=== PATIENT | male | born 1955 | race Caucasian/White ===

== ENCOUNTER 2021-10-07 20:44 | Inpatient (IN) | payer OTHER, MEDICAID ==
[~2021-10-07] VITALS: Ht 188 cm; Wt 149.4 kg
[~2021-10-07 20:44] MED LIST: ETOMIDATE 20 MG/ 10 ML VIAL (AMIDATE) ONE
--- NOTE | 2021-10-07 20:46 | NUR ---
66 YR OLD MALE FOUND DOWN IN HIS HOUSE FOR MORE THAN 2 WEEKS COVERED IN FECES WITH DIFFICULTY BREATHING. PER PARAMEDICS PT STATES HE HAS NOT BEEN TO A DOCTOR IN MORE THAN 30 YEARS. PER PARAMEDICS PT RECIEVED 2 ROUNDS OF ADENOSINE 12 MG IN ROUTE TO ED WITH NO CHANGE IN HEART RATE. PT HEART RATE UPON ARRIVAL WAS MORE THAN 200, WITH ELEVATED BLOOD PRESSURE. PT ARRIVED ON 4 LITER NASAL NANNULA WITH O2 SAT AT 84 %. PT DENIES BEING COVID VACCINATED OR HAVING KNOWN DRUG ALLERGIES. PT EKG COMPLETED AT THE BEDSIDE, AND MD IS AT THE BEDSIDE FOR EVALUATION. PT ARRIVED WITH 18 G IV IN HIS LEFT AC. AN ADDITIONAL 18 G IV WAS PLACED I THE RIGHT AC.
--- NOTE | 2021-10-07 20:47 | NUR ---
AT THE BEDSIDE, ORDER FOR 10MG OF ETOMIDATE ADMINISTERED TO PT.
--- NOTE | 2021-10-07 20:48 | NUR ---
PT PLACED ON CARDIAC PADS AND CARDIOVERTED. MD REMAINS AT THE BEDSIDE
--- NOTE | 2021-10-07 20:50 | NUR ---
MD PLACED NPA ON THE RIGHT NARE OF PT, PT TOLERATED WELL.
--- NOTE | 2021-10-07 20:57 | NUR ---
NITROGLYCERIN DRIP INITIATED AT 50 MCG/MIN ADMINISTERED IV. PT REMAINS ON BI PAP. PT WILL BE MONITERED CLOSELY
[2021-10-07 20:58] VITALS: BP_SYST 165
[2021-10-07] MEDS ORDERED: FUROSEMIDE 40 MG/4 ML VIAL IVP ONE (21:15)
[2021-10-07] MEDS ORDERED: ASPIRIN 325 MG TABLET PO ONE (21:15)
[2021-10-07] MEDS ORDERED: NITROGLYCERIN 250 ML IV ONE (21:15)
[2021-10-07 21:19] LABS: ANION GAP 14 (5-15); CHLORIDE 95 mmol/L (98-107); CREATININE 1.98 mg/dL (0.55-1.30); GLUCOSE 115 mg/dL (70-99); POTASSIUM 5.2 mmol/L (3.5-5.1); SODIUM SERUM 127 mmol/L (136-145); UREA NITROGEN, BLOOD 65 mg/dL (8-21)
[2021-10-07 21:23] LABS: MEAN CORPUSCULAR HGB CONC 33 % (32-36)
[2021-10-07 21:30] LABS: GFR AFRICAN AMERICAN 44 mL/min (>90)
[2021-10-07 21:34] LABS: ALANINE AMINOTRANSFERASE 2009 U/L (12-78); ALBUMIN 2.7 g/dL (3.4-4.8); ASPARTATE AMINOTRANSFERASE 1580 U/L (10-37); THYROID STIMULATING HORMONE 2.79 uIu/mL (0.36-3.74); TOTAL BILIRUBIN 3.4 mg/dL (0.0-1.0)
[2021-10-07 21:36] LABS: HEMATOCRIT 49.2 % (36-54); HEMOGLOBIN 16.3 g/dL (14.0-18.0); MEAN CORPUSCULAR HEMOGLOBIN 31 pg (27-31); MEAN CORPUSCULAR VOLUME 94 fL (79.0-98.0); PLATELET COUNT (AUTO) 180 K/uL (130-430); RED BLOOD CELL COUNT(AUTO) 5.22 MIL/uL (4.2-6.2); RED CELL DISTRIBUTION WIDTH 15.1 % (9.0-15.0); WHITE BLOOD COUNT (AUTO) 17.6 K/uL (4.8-10.8)
[2021-10-07] MEDS ORDERED: PIPERACILLIN/TAZO 3.375 GM in NS 50 ML IV ONE (22:00)
[2021-10-07] MEDS ORDERED: VANCOMYCIN HCL 1,000 MG in NS 250 ML IV ONE (22:00)
[2021-10-07] MEDS ORDERED: SODIUM ZIRCONIUM CYCLOSILICATE 10 GM POWD.PACK PO ONE (22:15)
--- NOTE | 2021-10-07 22:31 | NUR ---
Admit bed requested Patient will be admitted to care of . Admitted to unit. Diagnosis Inpatient (Yes or No) Observation (Yes or No) Orientation concerns or request close to nursing station (Yes or No) Covid Status On vent or bipap Isolation requirements Needs a sitter From Home (Yes or if No enter name of facility) Requires Dialysis (Yes or No) Med Rec Completed (Yes of No)
[2021-10-07 22:33] LABS: BILIRUBIN,URINE NEGATIVE (NEGATIVE); COLOR,URINE YELLOW (YELLOW); GLUCOSE,URINE NEGATIVE (NEGATIVE); KETONES,URINE NEGATIVE (NEGATIVE); LEUKOCYTE ESTERASE ,URINE NEGATIVE (NEGATIVE); NITRITE, URINE NEGATIVE (NEGATIVE); PROTEIN URINE TRACE (NEGATIVE)
[2021-10-07 22:46] LABS: BLOOD, URINE TRACE (NEGATIVE); CLARITY/URINE HAZY (CLEAR)
[2021-10-07] MEDS ORDERED: VANCOMYCIN HCL 1000 MG/VIAL IV ONE (23:26)
[2021-10-07] MEDS ORDERED: PIPERACILLIN/TAZOBACTAM 3.375 GM/VIAL (ZOSYN) IV ONE (23:27)
[2021-10-07 23:48] LABS: BAND % (MANUAL) 9 % (0-6); BASOPHILS % (MANUAL) 0 % (0-2); EOSINOPHILS % (MANUAL) 0 % (0-7); LYMPHOCYTES % (MANUAL) 2 % (20-46); MONOCYTES % (MANUAL) 2 % (0-11)
[2021-10-07 23:55] LABS: BACTERIA,URINE FEW /HPF (None Seen)
[2021-10-08] VITALS (25 sets, daily range): BP systolic 104–169
--- NOTE | 2021-10-08 00:34 | NUR ---
REPORT PROVIDED TO ED ÁLVAREZ FOR CONTINUATION OF CARE VIA PHONE
--- NOTE | 2021-10-08 00:35 | NUR ---
RECEIVED REPORT FROM ER OVER THE PHONE. PATIENT IS ON HIS WAY TO ICU.
--- NOTE | 2021-10-08 01:00 | NUR ---
PATIENT RECEIVED IN ICU BY NURSE NELIDA. PHOTOS OF PATIENTS WOUNDS WERE TAKEN IN ER AND BROUGHT TO ICU. PATIENT IS AWAKE WITH MILD CONFUSION AND GARBLED SPEECH. ASKED PATIENT SEVERAL QUESTION TO WHICH HE STATED HE WAS TIRED AND DID NOT WANT TO ANSWER ANY MORE QUESTIONS. PATIENT HAS A RIGHT AC 18G WITH NITROGLYCERIN RUNNING. PATIENT HAS WOUNDS ON LEFT AND RIGHT BUTTOCKS, BEHIND LEFT AND RIGHT UPPER CALF, ON LEFT HIP THAT HAS TUNNELING, ABDOMEN HAS A WOUND WITH PURULENT DRAINAGE AND SEVERAL SMALL WOUNDS, AND BOTH FEET HAVE DEEP CRACKS WITH PURULENT DRAINAGE. WOUNDS HAVE ZINC AND DRESSING APPLIED.
--- NOTE | 2021-10-08 03:40 | NUR ---
PATIENT SISTER VANDANA CALLED FOR AN UPDATE. VANDANA INFORMED ME THE PATIENT HAD STOPPED EATING ABOUT 4 DAYS AGO AND HAS SCHIZOPHRENIA AND IS UNSURE OF HIS MEDS. PATIENT HAS NOT GONE TO A DOCTOR IN A LONG TIME. VANDANA ASKED ABOUT THE VISITORS REQUIREMENTS WITH NAT AND I INFORMED SHE NEED A NEGATIVE PCR TEST WITHIN THE PAST 48 HOURS OR PROOF OF FULL VACCINATION STATUS. PATIENT STATED SHE WILL CALL AGAIN TOMORROW FOR AN UPDATE.
[2021-10-08 05:59] LABS: BASOPHILS # (AUTO) 0.1 K/uL (0.0-0.2); BASOPHILS % (AUTO) 0.5 % (0.0-2.0); EOSINOPHILS % (AUTO) 0.1 % (0.0-4.0); HEMATOCRIT 44.2 % (36-54); LYMPHOCYTES # (AUTO) 1.1 K/uL (1.0-5.5); LYMPHOCYTES % (AUTO) 6.6 % (20.5-51.5); MEAN CORPUSCULAR HEMOGLOBIN 32 pg (27-31); MEAN CORPUSCULAR HGB CONC 34 % (32-36); MEAN CORPUSCULAR VOLUME 93 fL (79.0-98.0); MONOCYTES # (AUTO) 1.1 K/uL (0.0-1.0); MONOCYTES % (AUTO) 6.4 % (1.7-9.3); NEUTROPHILS # (AUTO) 14.1 K/uL (1.8-7.7); NEUTROPHILS % (AUTO) 86.4 % (40.0-70.0); PLATELET COUNT (AUTO) 129 K/uL (130-430); RED BLOOD CELL COUNT(AUTO) 4.74 MIL/uL (4.2-6.2); RED CELL DISTRIBUTION WIDTH 14.8 % (9.0-15.0); WHITE BLOOD COUNT (AUTO) 16.4 K/uL (4.8-10.8)
[2021-10-08 06:42] LABS: ALBUMIN 2.6 g/dL (3.4-4.8); CALCIUM 7.8 mg/dL (8.4-11.0); CREATININE 1.89 mg/dL (0.55-1.30); PHOSPHORUS 4.9 mg/dL (2.7-4.5); POTASSIUM 4.7 mmol/L (3.5-5.1)
--- NOTE | 2021-10-08 07:40 | NUR ---
AM ASSESSMENT PT ALERT, ON O2 VIA FACIAL BIPAP, DR ARNOLD CAME IN AND EVALUATED PT. MD ORDERED TO DISCONTINUE HIS BIPAP AND CONNECT PT TO A NASAL CANNULA. ORDERS CARRIED OUT.
--- NOTE | 2021-10-08 07:45 | NUR ---
O2. PT'S SATURATION 88% ON NASAL CANNULA, INFORMED R.T. ON DUTY. O2 SWITCHED TO A MASK. SATURATION READING 94%.
--- NOTE | 2021-10-08 07:45 | NUR ---
RT NOTES 0708 Found pt on BIPAP. re-adjusted mask. 0745 Dr. Lorenzo changed pt to 2LNC, pt desaturate. Placed pt on 12L/40% fio2 Venti mask instead pt saturating 92% right now. will continue to monitor pt. RN Deanna rossi.
[2021-10-08] MEDS ORDERED: CALCIUM ACETATE 667 MG CAP PO ONE (08:00)
--- NOTE | 2021-10-08 08:29 | NUR ---
NOTIFIED OF CONSULTS DR.SIDHOM Lees , , ORDERING PHY: DR. EVANS DIALED: [phone], , SPOKE TO: GARCÍA LOVE DARLENE
[2021-10-08] MEDS: METOPROLOL TARTRATE 50 MG TABLET PO SCH ×2 (08:31→20:55)
--- NOTE | 2021-10-08 08:36 | NUR ---
TEST PT HAVING AN ECHOCARDIOGRAM AT THIS HOUR.
--- NOTE | 2021-10-08 08:47 | NUR ---
CONSULTING PHYSICIANS DR BAILON AND DR FRANCO CAME IN TO SEE THE PATIENT. Addendum: 10/08/21 at 1047 by Deanna Small RN DR DAMON CAME IN TO SEE THE PATIENT NOT DR BAILON
[2021-10-08 08:56] LABS: CKMB RELATIVE INDEX 0.6 (0.0-2.9); CREATINE KINASE MB 3.5 ng/mL (0-3.6)
[2021-10-08] MEDS: NACL 0.9% 1,000 ML IV SCH ×3 (09:01→21:56)
--- NOTE | 2021-10-08 09:01 | NUR ---
IV MEDS NITROGLYCERIN DRIP DISCONTINUED ORDERED BY DR ARNOLD.
[2021-10-08 09:14] LABS: TOTAL BILIRUBIN 3.8 mg/dL (0.0-1.0)
--- NOTE | 2021-10-08 10:06 | NUR ---
AUTOMATION CONTROL INTEGRATOR AT BEDSIDE, PROCEDURE EXPLAINED TO THE PATIENT. PT DECLINED. NURSE EXPLAINED THE PURPOSE AND DURATION OF THE TEST HE STATED " I DON'T WANT YOU TO RUIN MY STOMACH", PT SHAKING HIS HEAD FOR NO.
--- NOTE | 2021-10-08 10:13 | NUR ---
NOTIFIED OF CONSULT ORDERING PHY: REASON FOR CONSULT: SEPSIS DIALED: [phone] SPOKE TO: ELKE
[2021-10-08] MEDS: IPRATROPIUM/ALBUTEROL SULFATE 3 ML AMPUL.NEB (DUONEB) INH SCH ×4 (10:47→22:19)
[2021-10-08] MEDS: PIPERACILLIN/TAZO 3.375/DEX-IS 50 ML IV SCH ×3 (12:26→23:14)
--- NOTE | 2021-10-08 12:49 | NUR ---
TEST PT FOR CT SCAN OF THE ABDOMEN, USE OF ORAL CONTRAST NEEDED, EXPLAINED THE PROCEDURE TO THE PATIENT, PT REFUSED TO WORK WITH STAFF, SHOOK HIS HEAD, HE SAID NO.
[2021-10-08] MEDS ORDERED: AZITHROMYCIN 500 MG in NS 250 ML IV ONE (13:00)
[2021-10-08 13:26] LABS: BARBITURATE, URINE NEGATIVE (NEG <=200); BENZODIAZEPINE, URINE NEGATIVE (NEG <=150); CANNABINOID, URINE NEGATIVE (NEG <=50); COCAINE, URINE NEGATIVE (NEG <=150); METHAMPHETAMINES SCREEN,URINE NEGATIVE (NEG <=500); OPIATE, URINE NEGATIVE (NEG <=100); PHENCYCLIDINE SCREEN,URINE NEGATIVE (NEG <=25); URINE AMPHETAMINE NEGATIVE (NEG <=500); URINE METHADONE NEGATIVE (NEG <=200); URINE OXYCODONE SCREEN NEGATIVE (NEG <=100)
[2021-10-08 13:27] LABS: UR TRICYCLIC ANTIDEPRESSANTS NEGATIVE (NEG <=300); URINE PROPOXYPHENE SCREEN NEGATIVE (NEG <=300)
[2021-10-08] MEDS ORDERED: ONDANSETRON HCL 4 MG/2 ML VIAL IVP ONE (13:45)
--- NOTE | 2021-10-08 13:45 | NUR ---
LeydiICamille PT COMPLAINED "I WANT TO THROW UP", HANDED A BASIN AND TOWEL, PT NAUSEATED, INFORMED DR EVANS, ORDERS RECEIVED. ZOFRAN 4 MG IVP GIVEN.
[2021-10-08 16:47] LABS: INR 1.8 (0.80-1.20); PROTHROMBIN TIME 18.5 SECS (9.5-12.5)
[2021-10-08 17:07] LABS: CKMB RELATIVE INDEX 2.1 (0.0-2.9); CREATINE KINASE MB 11.4 ng/mL (0-3.6)
--- NOTE | 2021-10-08 19:05 | NUR ---
OPENING NOTES: RECEIVED BEDSIDE REPORT FROM JUVENTINO. PATIENT IS AWAKE AND ALERT BUT STILL CONFUSED. PATIENT IS ON BIPAP 15/8, 16, 50%. PATIENT HAS A LEFT HAND 18G WITH HAS NS INFUSING AT 100 ML/HR. PATIENT REFUSED AN ABDOMINAL ULTRASOUND AND A CAT SCAN TODAY. PATIENT IS SINUS TACH AND HAS BEEN ALL DAY. PATIENT DID NOT HAVE A BM, HAS A NY THAT IS PATENT AND DRAINAGE. WOUND CONSULT WAS SUBMITTED BUT NO ONE HAS COME BY TO ASSESS. PATIENT IS ON A CARDIAC DIET BUT ONLY ATE A LITTLE LUNCH AND DINNER WAS HELD DUE TO NURSE OBSERVING STRUGGLE TO BREATH. BED IS AT THE LOWEST LEVEL, CALL LIGHT IS WITHIN REACH, SUCTION WORKING, 3 SIDE RAILS UP, BRAKES ARE LOCKED. EDUCATED PATIENT ABOUT CALLING IF HE NEEDS ANY HELP AND TO NOT GET UP.
--- NOTE | 2021-10-08 19:35 | NUR ---
PATIENT SISTER VANDANA CALLED AND ASKED FOR AN UPDATE. ASKED IF ANY DOCTOR HAD TALKED WITH HER AND ONLY THIS MORNING DID THE DOCTOR. GAVE HER A BRIEF UPDATE AND INQUIRED IF THERE IS ANY PAPERWORK FOR A POWER OF CONTACT CENTER CONSULTANT OR ANY MEDICAL RECORDS ON HIS MENTAL HEALTH CONDITION. SHE SAID HER MOTHER HAS POWER OF CONTACT CENTER CONSULTANT AND WILL BRING ALL THE PAPER WORK TONIGHT.
--- NOTE | 2021-10-08 20:00 | NUR ---
PATIENTS MOTHER GERRY CALLED AND INFORMED ME SHE WAS HIS POWER OF WEBSPHERE PROCESS SERVER DEVELOPER AND THAT SHE WANTED ALL TESTS TO BE DONE. I INFORMED HER WE WOULD NEED THE PAPERWORK AND WILL IMPEDIMENT THEM INTO THE PATIENTS CHART. SHE INFORMED ME SHE WOULD BRING THEM ONCE FOUND.
[2021-10-08] MEDS ORDERED: HEPARIN SODIUM,PORCINE 5,000 UNITS/ML VIAL SUBCUT SCH (21:00)
--- NOTE | 2021-10-08 21:27 | NUR ---
PATIENT SISTER PAULINA CALLED AND INFORMED ME SHE LEFT THE DURABLE POWER OF CHARGING PLUG PLACER AND HIS INSURANCE CARD WITH THE ER RADIO TELEVISION TECHNICAL DIRECTOR. I PICKED UP THE PAPERWORK AND PLACED IN PATIENTS CHART.
[2021-10-08] MEDS ORDERED: VANCOMYCIN HCL 1,500 MG in NS 250 ML IV SCH (22:00)
[2021-10-09] VITALS (27 sets, daily range): BP systolic 40–189
[2021-10-09 00:07] LABS: CKMB RELATIVE INDEX 2.8 (0.0-2.9); CREATINE KINASE MB 9.6 ng/mL (0-3.6)
[2021-10-09] MEDS: IPRATROPIUM/ALBUTEROL SULFATE 3 ML AMPUL.NEB (DUONEB) INH SCH ×5 (03:03→20:35)
[2021-10-09] MEDS: PIPERACILLIN/TAZO 3.375/DEX-IS 50 ML IV SCH ×3 (05:08→18:38)
[2021-10-09 07:35] LABS: BASOPHILS % (AUTO) 0.1 % (0.0-2.0); EOSINOPHILS % (AUTO) 0.2 % (0.0-4.0); MEAN CORPUSCULAR HGB CONC 33 % (32-36)
[2021-10-09 07:41] LABS: INR 1.5 (0.80-1.20); PROTHROMBIN TIME 15.5 SECS (9.5-12.5)
[2021-10-09 07:43] LABS: HEMATOCRIT 45.6 % (36-54); HEMOGLOBIN 14.9 g/dL (14.0-18.0); LYMPHOCYTES # (AUTO) 0.8 K/uL (1.0-5.5); LYMPHOCYTES % (AUTO) 5.1 % (20.5-51.5); MEAN CORPUSCULAR HEMOGLOBIN 32 pg (27-31); MONOCYTES # (AUTO) 1.4 K/uL (0.0-1.0); MONOCYTES % (AUTO) 8.1 % (1.7-9.3); NEUTROPHILS # (AUTO) 14.4 K/uL (1.8-7.7); NEUTROPHILS % (AUTO) 86.5 % (40.0-70.0); PLATELET COUNT (AUTO) 89 K/uL (130-430); RED BLOOD CELL COUNT(AUTO) 4.73 MIL/uL (4.2-6.2); RED CELL DISTRIBUTION WIDTH 15.5 % (9.0-15.0); WHITE BLOOD COUNT (AUTO) 16.7 K/uL (4.8-10.8)
[2021-10-09 07:49] LABS: CALCIUM 7.4 mg/dL (8.4-11.0); CREATININE 1.55 mg/dL (0.55-1.30); POTASSIUM 4.9 mmol/L (3.5-5.1)
[2021-10-09 08:03] LABS: ALBUMIN 2.5 g/dL (3.4-4.8); THYROID STIMULATING HORMONE 1.82 uIu/mL (0.36-3.74)
[2021-10-09 08:15] LABS: MEAN CORPUSCULAR VOLUME 97 fL (79.0-98.0)
--- NOTE | 2021-10-09 08:20 | NUR ---
MD DR EVANS IN THE ROOM, PT ON O2 VIA BIPAP, SHE EXAMINED THE PATIENT. PT'S LOWER EXTREMITIES SWOLLEN, SKIN IS RED AND TEXTURE ROUGH, SKIN FISSURE. SHE ASKED FOR A VASCULAR SURGEON TO SEE THE PATIENT.
[2021-10-09] MEDS: PANTOPRAZOLE SODIUM 40 MG/VIAL (PROTONIX) IVP SCH (09:02)
[2021-10-09] MEDS: METOPROLOL TARTRATE 50 MG TABLET PO SCH (09:04)
--- NOTE | 2021-10-09 09:10 | NUR ---
DIET SERVED PT HIS BREAKFAST, REMOVED PT ON BIPAP, 4 L NASAL CANNULA APPLIED. PT TOLERATED HIS MEAL, HAD A CUP OF DRY CEREAL WITH MILK, AN ORANGE, AND DRANK ORANGE JUICE.
[2021-10-09] MEDS: NACL 0.9% 1,000 ML IV SCH ×2 (09:24→22:05)
--- NOTE | 2021-10-09 09:25 | NUR ---
RT NOTES Per RN pt was placed on 4L NC @0910. Current sat 94%. Will monitor pt.
--- NOTE | 2021-10-09 09:35 | NUR ---
CONSULT CALLED DR WASHBURN, SHIPPING ROOM HELPER PHYSICIAN THIS WEEK END DR Nura PURCELL, PT FOR POSSIBLE WOUND DEBRIDEMENT TO HIS LOWER EXTREMITIES, MD STATED THAT HE WILL SEE THE PATIENT IN THE NEXT FEW DAYS, IT'S NOT EMERGENCY.
--- NOTE | 2021-10-09 10:55 | NUR ---
MD DR FRIED WAS IN THE ROOM, SHE SPOKE TO THE PATIENT AND DISCUSSED PLAN OF CARE. PATIENT DYSPNEIC. PT AGREED ON VENTILATOR. DR WASHBURN CAME IN AFTER A WHILE. HE EXAMINED PT'S SORES TO THE LEGS AND BUTTOCKS.
--- NOTE | 2021-10-09 11:10 | NUR ---
RT NOTES Pt was intubated by dr Lion using the glidescope, with 7.0 ETT secured at 25cm. Bilateral b/s/chest rise noted. Colorimetric changed to yellow & misting was noted on ETT confirming position. Placed pt on vent AC 18 550 +5 100% per Dr's order. Pt. appears to tolerate well. Alarms are set and audible @ nurses's station, vent to red outlet. Dr instructed RT to pull ETT 1cm back, secured at 24cm. Sputum was collected during bronchoscopy which was done after intubation, dr instructed RT to push ETT back to 25cm. No adverse reactions noted. A/w remains secure/patent. Will monitor pt, will draw ABG.
--- NOTE | 2021-10-09 11:20 | NUR ---
FEEDING TUBE INSERTED 16 FR SIZE SALEM SUMP INTO ORAL CAVITY.
[2021-10-09] MEDS ORDERED: NALOXONE HCL 0.4 MG/ML AMP (NARCAN) IVP PRN (11:30)
[2021-10-09] MEDS ORDERED: MORPHINE SULFATE IN 0.9 % NACL 100 ML IV PRN (11:30)
[2021-10-09] MEDS ORDERED: MIDAZOLAM IN NACL,ISO-OSMOT/PF 100 ML IV ONE (11:38)
--- NOTE | 2021-10-09 13:50 | NUR ---
RT NOTES vent settings to AC [address] Kay's order. FIO2 to 0.80 per titration order. Will monitor pt.
--- NOTE | 2021-10-09 14:05 | NUR ---
FAMILY CALL RECEIVED FROM PARESH LLANOS, SHE SAID SHE IS GARCÍA'S OLDER SISTER. SHE LIVES IN THE [facility]. SHE ASKED FOR HER BROTHER'S STATUS. SHE IS AWARE THAT HE HAS SEPSIS, AND PROBLEMS TO HIS WOUNDS. SOME INFORMATION GATHERED FROM HER ON HIS LIVING CONDITION.
--- NOTE | 2021-10-09 15:10 | NUR ---
SOCIAL MEDIA INTERN CALLED AND REPORTED TO DR ARNOLD ON PATIENT'S LOW BLOOD PRESSURE, NOW PT ON VERSED DRIP AND MORPHINE DRIP. PATIENT MECHANICALLY INTUBATED. NEW ORDERS RECEIVED.
[2021-10-09] MEDS ORDERED: COMMUNICATION ORDER XX ONE (15:15)
[2021-10-09] MEDS ORDERED: NS 500 ML IV ONE (15:15)
--- NOTE | 2021-10-09 15:20 | NUR ---
RT NOTES FIO2 TO 0.70 PER TITRATION ORDER. NO ADVERSE REACTIONS NOTED. WILL MONITOR PT. RN MADE AWARE.
--- NOTE | 2021-10-09 15:41 | NUR ---
ISSUING OPERATOR AT BEDSIDE SETTING UP APPARATUS FOR ABDOMINAL ULTRA SOUND.
[2021-10-09] MEDS: ALBUMIN HUMAN 25% 50 ML IV SCH ×2 (15:44→21:15)
[2021-10-09] MEDS: AZITHROMYCIN 500 MG in NS 250 ML IV SCH (15:47)
--- NOTE | 2021-10-09 16:40 | NUR ---
BILLET HEADER DR SEXTON WENT TO SEE THE PATIENT. PT'S BLOOD PRESSURE UNDETECTABLE, VENOUS DOPPLER ATTACHED TO THE PATIENT, PULSES HEARD. NEW ORDERS RECEIVED FROM DR SEXTON. 1 LITER SALINE BOLUS GIVEN.
[2021-10-09] MEDS ORDERED: NACL 0.9% 1,000 ML IV ONE (17:00)
[2021-10-09] MEDS ORDERED: NOREPINEPHRINE 4 MG/4 ML VIAL IV ONE ×3 (17:16→19:28)
[2021-10-09] MEDS ORDERED: VASOPRESSIN 40 UNITS in NS 38 ML IV PRN (17:45)
[2021-10-09] MEDS ORDERED: HYDROCORTISONE SOD SUCC 100 MG/2 ML VIAL IVP ONE (17:45)
[2021-10-09] MEDS ORDERED: ALBUMIN HUMAN 5% 250 ML IV ONE (17:45)
--- NOTE | 2021-10-09 17:50 | NUR ---
TIME OUT PICC LINE NURSE AT BEDSIDE, VERIFIED ORDERS, PT'S IDENTIFICATION. ULTRA SOUND MACHINE PLACED IN THE ROOM.
[2021-10-09] MEDS ORDERED: HYDROCORTISONE SOD SUCC 100 MG/2 ML VIAL ONE ×2 (17:57→17:59)
--- NOTE | 2021-10-09 20:00 | NUR ---
OPENING NOTES: RECEIVED REPORT FROM JUVENTINO. PATIENT INTUBATED OF NOON TODAY . PATIENT HAS A LEFT HAND 18G WITH HAS NS INFUSING AT 150 ML/HR. NEW PICC LINE PLACED AT 1600 ON LEFT U/A. PATIENT IS SINUS TACH AND HAS BEEN ALL DAY. HAS A NY THAT IS PATENT AND DRAINAGE. WOUND CONSULT WAS SUBMITTED BUT NO ONE HAS COME BY TO ASSESS. BED IS AT THE LOWEST LEVEL, CALL LIGHT IS WITHIN REACH, SUCTION WORKING, 3 SIDE RAILS UP, BRAKES ARE LOCKED.
[2021-10-10] VITALS (31 sets, daily range): BP systolic 96–147
--- NOTE | 2021-10-10 | NUR ---
PT DID NOT TOLERATE CLEANING. PT HAD BM AND DRSG CHANGES. PT O2 SAT'S DECREASED TO 82%. ADL CAR ESTOPPED PT PLACED IN 90 DEGREE AND STAFF WAITED FOR SAT'S TO INCREASE.
[2021-10-10] MEDS: IPRATROPIUM/ALBUTEROL SULFATE 3 ML AMPUL.NEB (DUONEB) INH SCH ×7 (00:04→23:09)
[2021-10-10] MEDS: NOREPINEPHRINE BITARTRATE 16 MG in NS 234 ML IV PRN (00:43)
[2021-10-10] MEDS: PIPERACILLIN/TAZO 3.375/DEX-IS 50 ML IV SCH ×5 (00:47→21:06)
--- NOTE | 2021-10-10 01:30 | NUR ---
ADL'S PT CLEANED AND HAD FULL BED BATH WITH ALL LINEN CHANGED. DRSG APPLIES TO ALL WOUNDS. PT REQUIRED 3 NURSE TO COMPLETES ADL. PT DID DESAT INTO LOW 90'S AND STAFF STOPPED AND RAISED HEAD OF BED TO ALLOW SATURATION. PT ALSO HAD A DECREASE IN BLOOD PRESSURE AND PT RAISED TO 90 DEGREE UNTIL BLOOD PRESSURE RECOVERED. THE LEVOPHED DID NOT HAVE TO BE INCREASED ALL SAFETY PRECAUTIONS IN PLACE.
[2021-10-10] MEDS ORDERED: NOREPINEPHRINE 4 MG/4 ML VIAL IV ONE ×2 (03:13)
[2021-10-10] MEDS: ALBUMIN HUMAN 25% 50 ML IV SCH (03:15)
[2021-10-10] MEDS: NACL 0.9% 1,000 ML IV SCH ×4 (03:33→21:06)
[2021-10-10] MEDS: HYDROCORTISONE SOD SUCC 100 MG/2 ML VIAL IVP SCH ×3 (06:01→21:09)
[2021-10-10 06:46] LABS: BASOPHILS % (AUTO) 0.1 % (0.0-2.0); HEMATOCRIT 42.8 % (36-54); HEMOGLOBIN 13.8 g/dL (14.0-18.0); LYMPHOCYTES # (AUTO) 0.6 K/uL (1.0-5.5); MEAN CORPUSCULAR HEMOGLOBIN 31 pg (27-31); MEAN CORPUSCULAR HGB CONC 32 % (32-36); MEAN CORPUSCULAR VOLUME 97 fL (79.0-98.0); MONOCYTES # (AUTO) 0.8 K/uL (0.0-1.0); MONOCYTES % (AUTO) 6.5 % (1.7-9.3); NEUTROPHILS # (AUTO) 10.9 K/uL (1.8-7.7); NEUTROPHILS % (AUTO) 88.4 % (40.0-70.0); PLATELET COUNT (AUTO) 79 K/uL (130-430); RED CELL DISTRIBUTION WIDTH 15.4 % (9.0-15.0)
--- NOTE | 2021-10-10 07:13 | NUR ---
RT NOTES FIO2 to 0.70 per titration order. NO adverse reactions noted. Will monitor pt.
[2021-10-10 07:18] LABS: ALBUMIN 2.1 g/dL (3.4-4.8); CREATININE 2.19 mg/dL (0.55-1.30); POTASSIUM 5.4 mmol/L (3.5-5.1); TOTAL BILIRUBIN 1.9 mg/dL (0.0-1.0)
[2021-10-10 07:29] LABS: TOTAL IRON BIND. CAPACITY 210 ug/dL (250-450)
--- NOTE | 2021-10-10 07:50 | NUR ---
RT NOTES FIO2 TO 0.60 per titration order. No adverse reactions noted. will monitor pt. RN made aware.
[2021-10-10] MEDS: FAMOTIDINE PF 20 MG/2 ML VIAL IVP SCH (08:25)
[2021-10-10] MEDS: PANTOPRAZOLE SODIUM 40 MG/VIAL (PROTONIX) IVP SCH (08:26)
[2021-10-10 08:44] LABS: CALCIUM 6.9 mg/dL (8.4-11.0)
--- NOTE | 2021-10-10 09:55 | NUR ---
RT NOTES FIO2 TO 0.50 PER TITRATION ORDER. NO ADVERSE REACTIONS NOTED. WILL NOTIFY RN.
[2021-10-10 10:23] LABS: WHITE BLOOD COUNT (AUTO) 12.3 K/uL (4.8-10.8)
--- NOTE | 2021-10-10 11:07 | NUR ---
RT NOTES FIO2 TO 0.40. WILL MONITOR PT.
[2021-10-10] MEDS: MIDAZOLAM IN NACL,ISO-OSMOT/PF 100 ML IV PRN (12:41)
[2021-10-10] MEDS ORDERED: SODIUM POLYSTYRENE SULFONATE 15 GM/60 ML UDBTL GT ONE (13:00)
[2021-10-10] MEDS: AZITHROMYCIN 500 MG in NS 250 ML IV SCH (13:00)
[2021-10-10] MEDS ORDERED: CALCIUM CHLORIDE 1 GM in NS 100 ML IV ONE (13:30)
[2021-10-10] MEDS ORDERED: ETOMIDATE 20 MG/ 10 ML VIAL (AMIDATE) IVP ONE (14:44)
[2021-10-10] MEDS ORDERED: ROCURONIUM BROMIDE 10 MG/ML (ZEMURON) IV ONE (14:44)
--- NOTE | 2021-10-10 15:26 | NUR ---
RT NOTES Pt appears to be waking up, coughing and breathing against the machine. Pt appears to be trying to get up. Rn was notified.
--- NOTE | 2021-10-10 20:00 | NUR ---
OPENING NOTE PT INTUBATED FIO2 DECREASED TO 40. VS 117/76, 89, 24, 95%. PT IN BILAT WRIST RESTRAINTS FOR SAFETY. PICC LINE IN R U/A WITH LEVO AT 0.05 AND VERSED AT 4. IVF NS @ 150. DR WASHBURN IN AND WANTS CT SCAN OF ABD AND PELVIS DONE TONIGHT WILL CONTINUE TO MONITOR.
--- NOTE | 2021-10-10 20:35 | NUR ---
PT to be transported for Ct Scan Staff was assisting in preparing pt for transport. When moving the pt's his Blood pressure decreased to 89/59. pot was lift back up to 90 degree. Pt's pressure control at 20, FIO2 40%, TV 600 and 5 of PEEP. Pt sat's have decreased to 88% when trying to get him prepared to be taken down for CT. Pt has been suctioned twice with saline by RT. Staff still waiting on sat's to rise. Levophed was increased as blood pressure still has not stabilized from pt being moved to prepare for transport to CT. At this time charge nurse determines pt is not stable enough to be transported off the unit.
--- NOTE | 2021-10-10 20:58 | NUR ---
PT SAT'S STILL LOW PT STILL HAS NOT RECOVERED FROM ATTEMPTING TO TRANSPORT DOWN TO CT. PT SAT'S REMAIN 92-93%. FIO2 WAS INCREASED TO 50%
--- NOTE | 2021-10-10 21:11 | NUR ---
CT was ordered for pt by Dr Brown to have this evening. RT and CT were here in the unit to filler picker patient for CT of the ABD/Pelvis. Pt started to DESAT to the low 80's and BP decreased to the 80"s also. Pt was also in bed moving around alot with sedation infusing. pt is to unstable to transport to the CT scan this evening with his unstable VS. Advised technical services coordinator to schedule him for tommorrow.
--- NOTE | 2021-10-10 21:15 | NUR ---
Currently pts FIO2 had to be increased to 40% because SATS were still in the 80's
--- NOTE | 2021-10-10 23:00 | NUR ---
FIO2 WAS INCREASED BACK TO 50%, PT SAT'S ARE BETWEEN 94-96%. WILL CONTINUE TO MONITOR
[2021-10-11] VITALS (30 sets, daily range): BP systolic 90–151
--- NOTE | 2021-10-11 02:45 | NUR ---
PT CLEANED AND HAD FULL BED BATH WITH ALL LINEN CHANGED. DRSG APPLIES TO ALL WOUNDS. PT REQUIRED 3 NURSE TO COMPLETES ADL. PT DID DESAT INTO LOW 90'S AND STAFF STOPPED AND RAISED HEAD OF BED TO ALLOW SATURATION. ALL SAFETY PRECAUTIONS IN PLACE.
[2021-10-11] MEDS: IPRATROPIUM/ALBUTEROL SULFATE 3 ML AMPUL.NEB (DUONEB) INH SCH ×6 (03:41→23:20)
[2021-10-11] MEDS: NACL 0.9% 1,000 ML IV SCH ×3 (04:30→14:19)
--- NOTE | 2021-10-11 05:01 | NUR ---
PT GIVEN KAYEXALATE AND WAS PASSING GAS. CHECK PT AND STILL NO BM PRODUCED. WILL REPORT TO DAY SHIFT SO THEY CAN INFORM THE MD
[2021-10-11] MEDS: PIPERACILLIN/TAZO 3.375/DEX-IS 50 ML IV SCH ×4 (05:32→23:10)
[2021-10-11] MEDS: HYDROCORTISONE SOD SUCC 100 MG/2 ML VIAL IVP SCH ×3 (05:32→21:04)
[2021-10-11] MEDS: MIDAZOLAM IN NACL,ISO-OSMOT/PF 100 ML IV PRN (05:37)
--- NOTE | 2021-10-11 07:10 | NUR ---
RECEIVED SBAR REPORT FROM OUTGOING NURSE, ED HA PATIENT IN NO ACUTE DISTRESS. WILL CONTINUE TO MONITOR.
[2021-10-11 07:22] LABS: BASOPHILS % (AUTO) 0.1 % (0.0-2.0); HEMATOCRIT 40.4 % (36-54); HEMOGLOBIN 13.3 g/dL (14.0-18.0); LYMPHOCYTES # (AUTO) 0.3 K/uL (1.0-5.5); MEAN CORPUSCULAR HEMOGLOBIN 31 pg (27-31); MEAN CORPUSCULAR HGB CONC 33 % (32-36); MEAN CORPUSCULAR VOLUME 95 fL (79.0-98.0); MONOCYTES # (AUTO) 0.6 K/uL (0.0-1.0); MONOCYTES % (AUTO) 4.8 % (1.7-9.3); NEUTROPHILS # (AUTO) 10.6 K/uL (1.8-7.7); NEUTROPHILS % (AUTO) 92.1 % (40.0-70.0); PLATELET COUNT (AUTO) 64 K/uL (130-430); RED BLOOD CELL COUNT(AUTO) 4.24 MIL/uL (4.2-6.2); RED CELL DISTRIBUTION WIDTH 15.6 % (9.0-15.0); WHITE BLOOD COUNT (AUTO) 11.5 K/uL (4.8-10.8)
[2021-10-11] MEDS ORDERED: FUROSEMIDE 40 MG/4 ML VIAL IVP ONE (07:30)
[2021-10-11 07:42] LABS: ALBUMIN 1.8 g/dL (3.4-4.8); CREATININE 2.03 mg/dL (0.55-1.30); POTASSIUM 4.4 mmol/L (3.5-5.1); TOTAL BILIRUBIN 1.6 mg/dL (0.0-1.0)
[2021-10-11 07:52] LABS: CALCIUM 6.8 mg/dL (8.4-11.0)
[2021-10-11] MEDS: FAMOTIDINE PF 20 MG/2 ML VIAL IVP SCH (08:15)
[2021-10-11] MEDS: DEXMEDETOMIDINE HCL 200 MCG in NS 48 ML IV PRN ×3 (10:22→21:16)
[2021-10-11] MEDS: PANTOPRAZOLE SODIUM 40 MG/VIAL (PROTONIX) IVP SCH (10:22)
[2021-10-11 11:06] LABS: ANTI NUCLEAR AB WITH REFLEX Negative (Negative)
--- NOTE | 2021-10-11 12:10 | NUR ---
Dietitian Recommendations * Nepro at 50 ml/hr (goal rate), Yeison BID, FWF per MD * Provides: 2320 kcals/day, 102 protein/day, 872 ml free water * Meetin% of estimated caloric needs and 98% of upper end of estimated protein needs Please refer to Nutrition Assessment for details. Addendum: 10/11/21 at [address] Amended: Links added.
[2021-10-11] MEDS ORDERED: HYDROmorphone 1 MG/ML INJ. CARTRIDGE ONE (12:35)
[2021-10-11] MEDS ORDERED: HYDROmorphone 1 MG/ML INJ. CARTRIDGE IVP ONE (12:45)
[2021-10-11] MEDS ORDERED: NALOXONE HCL 0.4 MG/ML AMP (NARCAN) IVP PRN (12:45)
--- NOTE | 2021-10-11 12:50 | NUR ---
RECEIVED AN ORDER FOR DEBRIDEMENT OF LEFT LOWER LEG POSTERIOR CALF GANGRENE WOUND. TELEPHONE CONSENT OBTAINED FROM PATIENT'S MOTHER -- GERRY BOO. WITNESSED BY ED KRISHNAN DR., ANTHONY, HERE AT BEDSIDE. DEBRIDEMENT DONE. PER ORDER, GIVEN PATIENT PAIN MEDICATION PRIOR TO PROCEDURE: DILAUDID 1 MG IV PUSH X 1. TOLERATED WELL WILL CONTINUE TO MONITOR.
[2021-10-11] MEDS: AZITHROMYCIN 500 MG in NS 250 ML IV SCH (13:56)
[2021-10-11] MEDS: NOREPINEPHRINE BITARTRATE 16 MG in NS 234 ML IV PRN (14:05)
--- NOTE | 2021-10-11 16:21 | NUR ---
RT NOTES Sat remained low despite HHN tx, sxn. FIO2 to 0.50, RN to reposition pt. If no improvement, will increase FIO2 to achieve target Sat.
--- NOTE | 2021-10-11 16:28 | NUR ---
RT NOTES Pt is being cleaned, sat 85%, changed FIO2 TO 100%, improvement noted, almost immediately to 90%
[2021-10-11] MEDS ORDERED: NS IRRIG SOLN 1000 ML IR ONE (17:09)
[2021-10-11] MEDS ORDERED: BUPIVACAINE /EPINEPHRINE/PF 0.25% 30 ML VIAL INJ ONE (17:09)
--- NOTE | 2021-10-11 17:40 | NUR ---
RT NOTES CURRENT SAT 100%. TITRATED FIO2 TO 0.70. RN NOTIFIED.
[2021-10-11 19:06] LABS: MYCOPLASMA PNEUMONIAE IgM <770 U/mL (0-769)
--- NOTE | 2021-10-11 19:13 | NUR ---
SBAR REPORT GIVEN TO INCOMING RN, ED HA PATIENT IN NO ACUTE DISTRESS. -LIZ PAEZ, RN
--- NOTE | 2021-10-11 19:28 | NUR ---
OPENING NOTE PT INTUBATED FIO2 INCREASED TO 70. VS ARE SOFT WITH NO LEVO 95/59, 71 21, 96%. PT IN BILAT WRIST RESTRAINTS FOR SAFETY. PICC LINE IN R U/A WITH PRECEDEX 0.2, AND IVF NS @ 75. NEW ORDER FOR FEEDING NEPHRO @ 50ML/HR. DR WASHBURN IN AND WANTS CT SCAN OF ABD AND PELVIS DONE BUT THE ORDER HAS BEEN D/C'D. ALL SAFETY PRECAUTIONS IN PLACE WILL CONTINUE TO MONITOR.
[2021-10-12] VITALS (31 sets, daily range): BP systolic 100–163
--- NOTE | 2021-10-12 | NUR ---
PRECEDEX INCREASE PT WAS MOVING OPENING HIS EYES AND TRYING TO GET UP. PT PRECEDEX WAS TITRATED UPWARD FROM 0.2 CURRENTLY ON 0.6 WILL CONTINUE TO MONITOR
[2021-10-12] MEDS ORDERED: DEXMEDETOMIDINE HCL 200 MCG/2 ML VIAL IV ONE ×2 (00:55→05:03)
--- NOTE | 2021-10-12 02:28 | NUR ---
PT CLEANED AND HAD FULL BED BATH WITH ALL LINEN CHANGED. DRSG'S APPLIES TO ALL OT THE WOUNDS WOUNDS. PT REQUIRED 3 NURSE TO COMPLETES ADL. ALL SAFETY PRECAUTIONS IN PLACE. PT HAD NI BM ONLY A SMEAR.
[2021-10-12] MEDS: NACL 0.9% 1,000 ML IV SCH (02:43)
[2021-10-12] MEDS: IPRATROPIUM/ALBUTEROL SULFATE 3 ML AMPUL.NEB (DUONEB) INH SCH ×6 (03:30→23:12)
[2021-10-12] MEDS: PIPERACILLIN/TAZO 3.375/DEX-IS 50 ML IV SCH ×4 (05:27→23:38)
[2021-10-12] MEDS: HYDROCORTISONE SOD SUCC 100 MG/2 ML VIAL IVP SCH (05:28)
[2021-10-12] MEDS: DEXMEDETOMIDINE HCL 200 MCG in NS 48 ML IV PRN ×4 (05:34→21:33)
[2021-10-12 06:26] LABS: BASOPHILS % (AUTO) 0.3 % (0.0-2.0); HEMOGLOBIN 13.7 g/dL (14.0-18.0); LYMPHOCYTES # (AUTO) 0.3 K/uL (1.0-5.5); LYMPHOCYTES % (AUTO) 2.9 % (20.5-51.5); MEAN CORPUSCULAR HEMOGLOBIN 31 pg (27-31); MEAN CORPUSCULAR HGB CONC 33 % (32-36); MEAN CORPUSCULAR VOLUME 95 fL (79.0-98.0); MONOCYTES # (AUTO) 0.6 K/uL (0.0-1.0); MONOCYTES % (AUTO) 5.5 % (1.7-9.3); NEUTROPHILS # (AUTO) 10.1 K/uL (1.8-7.7); NEUTROPHILS % (AUTO) 91.3 % (40.0-70.0); PLATELET COUNT (AUTO) 63 K/uL (130-430); RED BLOOD CELL COUNT(AUTO) 4.43 MIL/uL (4.2-6.2); RED CELL DISTRIBUTION WIDTH 15.7 % (9.0-15.0); WHITE BLOOD COUNT (AUTO) 11.1 K/uL (4.8-10.8)
[2021-10-12 07:01] LABS: ALBUMIN 1.8 g/dL (3.4-4.8); CREATININE 1.78 mg/dL (0.55-1.30); POTASSIUM 4.2 mmol/L (3.5-5.1); TOTAL BILIRUBIN 1.2 mg/dL (0.0-1.0)
--- NOTE | 2021-10-12 08:05 | NUR ---
0805 PT PLACED ON CPAP 5 PS [address] MCCOY ORDER. PT TOLERATING, WILL CONT TO MONITOR. Addendum: 10/12/21 at 1041 by Barbara Gomez RT Amended: Links added.
[2021-10-12 08:40] LABS: CALCIUM 7.1 mg/dL (8.4-11.0)
[2021-10-12] MEDS: FAMOTIDINE PF 20 MG/2 ML VIAL IVP SCH (08:59)
[2021-10-12] MEDS: PANTOPRAZOLE SODIUM 40 MG/VIAL (PROTONIX) IVP SCH (09:00)
--- NOTE | 2021-10-12 09:59 | NUR ---
ASSESSED PATIENT AT BEDSIDE. PT PRESENTED STABLE VITAL SIGNS AND DO NOT APPEAR DISTRESSED WHILE ON BREATHING TRIALS.
--- NOTE | 2021-10-12 11:46 | NUR ---
NOTIFIED OF CONSULT ORDERING PHY: REASON FOR CONSULT: KIDNEY INJURY SPOKE TO:
[2021-10-12] MEDS ORDERED: FUROSEMIDE 20 MG/2 ML VIAL IVP ONE (12:00)
[2021-10-12 13:38] LABS: ALPHA-1-ANTITRYPSIN, S 278 mg/dL (101-187)
[2021-10-12] MEDS ORDERED: ACETAMINOPHEN 650 MG SUPP.RECT RC PRN (15:15)
[2021-10-13] VITALS (33 sets, daily range): BP systolic 95–157
[2021-10-13] MEDS: NACL 0.9% 1,000 ML IV SCH ×2 (00:22→15:56)
[2021-10-13] MEDS: DEXMEDETOMIDINE HCL 200 MCG in NS 48 ML IV PRN ×3 (00:24→08:52)
[2021-10-13] MEDS: IPRATROPIUM/ALBUTEROL SULFATE 3 ML AMPUL.NEB (DUONEB) INH SCH ×6 (03:03→23:16)
[2021-10-13] MEDS: PIPERACILLIN/TAZO 3.375/DEX-IS 50 ML IV SCH ×3 (05:29→17:00)
[2021-10-13 07:05] LABS: POTASSIUM 3.9 mmol/L (3.5-5.1)
--- NOTE | 2021-10-13 07:22 | NUR ---
RT NOTES Found FIO2 on 0.60, which pt was tolerating well. Titrated to 0.50. No adverse reactions noted. Will monitor pt. Will notify ED.
--- NOTE | 2021-10-13 07:30 | NUR ---
RECEIVED PT IN BED #1, STABLE, REMAINS ON PRECEDEX, INTUBATED, NAD, VSS, AROUSABLE. PT STATUS HAS NOT IMPROVED TOO MUCH, AWAITING ADDITIONAL ASSESSMENTS BY MULTIPLE DISCIPLINARY MDs FOR PLAN OF CARE WITH DISPOSITION.
[2021-10-13] MEDS ORDERED: FUROSEMIDE 20 MG/2 ML VIAL IVP ONE (07:45)
--- NOTE | 2021-10-13 08:00 | NUR ---
RT NOTES Discuss with RN, will try CPAP once FIO2 is at 0.40. RN agreed.
[2021-10-13] MEDS: PANTOPRAZOLE SODIUM 40 MG/VIAL (PROTONIX) IVP SCH (08:16)
[2021-10-13] MEDS: FAMOTIDINE PF 20 MG/2 ML VIAL IVP SCH (08:16)
[2021-10-13 08:34] LABS: CALCIUM 6.6 mg/dL (8.4-11.0)
--- NOTE | 2021-10-13 09:40 | NUR ---
RT NOTES FIO2 TO 100%, pt appears in distress HR 160s-170s
[2021-10-13] MEDS ORDERED: CALCIUM GLUCONATE 2 GM in NS 100 ML IV ONE (10:00)
[2021-10-13] MEDS: METOPROLOL TARTRATE 5 MG/5 ML AMPUL IVP PRN (10:12)
[2021-10-13 14:06] LABS: ATYPICAL pANCA <1:20 titer (Neg:<1:20); CYTOPLASMIC (C-ANCA) <1:20 titer (Neg:<1:20); CYTOPLASMIC (P-ANCA) <1:20 titer (Neg:<1:20)
[2021-10-13] MEDS ORDERED: FUROSEMIDE 40 MG/4 ML VIAL IVP ONE (17:45)
[2021-10-13] MEDS ORDERED: FUROSEMIDE 40 MG/4 ML VIAL ONE (17:50)
--- NOTE | 2021-10-13 19:30 | NUR ---
Pt report received from ED Mcgill. Pt opens eyes to tactile stimuli. ETT secure with vent settings: A/C, 20, 600, 60%, 5. OGT patent and secure, Nepro tube feedings in progress at 50 mL/hr. ANA MARIA PICC patent and secure, good blood return. Skin weeping serosanguinous fluid near dsg site. Precedex infusing at 0.7 mcg/kg/hr and NS at 50 mL/hr. PIV Left wrist patent and secure. Bilat soft wrist restraints in place. Abdomen soft and distended. F/C secure with scan amount of dark red colored urine to tubing with blood clots noted, total 20 mL U/O to bag. Swelling generalized to all extremities, weeping to BUA, multiple wounds with dsgs in place. VSS, NAD noted at this time.
--- NOTE | 2021-10-13 20:00 | NUR ---
Tube feeding residual with 300 mL stomach contents, returned to pt. Tube feedings turned off.
--- NOTE | 2021-10-13 22:00 | NUR ---
Tube feeding residual 250 mL, returned to pt. Tube feedings remain off.
--- NOTE | 2021-10-13 22:20 | NUR ---
Attempted to drain F/C and approximately 20 mL dark blood began to drain from meatus. Resistance met with 20 mL sterile NS irrigation, 20 mL return with clotts noted. Also approximately 10 mL dark blood drained from meatus. No active bleeding noted. Bladder scanner performed with >[address] Rasta polk.
--- NOTE | 2021-10-13 22:28 | NUR ---
Spoke with Dr. Magdaleno regarding findings. New order received to change F/C and flush with 100 mL sterile NS. If no U/O, leave F/C in place and consult Dr. Poole in AM.
--- NOTE | 2021-10-13 23:00 | NUR ---
Indwelling F/C removed with balloon intact, blood clots noted to catheter. Upon removal, approximately 20 mL dark red blood from meatus, then stops. New #16 Fr. F/C inserted, balloon inflated with 10 mL sterile water, secured to right leg. Immediate return of 1250 dark red urine return to bag, then flushed with 100 mL sterile NS. Urine continues to drain. No further bleeding or drainage noted to meatus. Pt tolerated well, VSS.
[2021-10-13] MEDS ORDERED: DEXMEDETOMIDINE HCL 200 MCG/2 ML VIAL IV ONE (23:49)
[2021-10-14] VITALS (37 sets, daily range): BP systolic 117–155
--- NOTE | 2021-10-14 00:15 | NUR ---
250 mL residual stomach contents, returned to pt. Tube feedings remain off.
--- NOTE | 2021-10-14 00:30 | NUR ---
1200 mL U/O, straw in color, no drainage to meatus. 10 mL residual per bladder scanner. VSS, NAD.
--- NOTE | 2021-10-14 00:40 | NUR ---
Dr. Magdaleno calls, informed of improved U/O. No new orders.
[2021-10-14] MEDS ORDERED: DEXMEDETOMIDINE HCL 200 MCG/2 ML VIAL IV ONE ×2 (01:45→06:08)
[2021-10-14] MEDS: DEXMEDETOMIDINE HCL 400 MCG in NS 96 ML IV PRN ×6 (01:46→22:20)
[2021-10-14] MEDS: IPRATROPIUM/ALBUTEROL SULFATE 3 ML AMPUL.NEB (DUONEB) INH SCH ×6 (02:27→23:10)
[2021-10-14 05:58] LABS: BASOPHILS % (AUTO) 0.2 % (0.0-2.0); EOSINOPHILS % (AUTO) 0.4 % (0.0-4.0); HEMATOCRIT 41.5 % (36-54); HEMOGLOBIN 13.8 g/dL (14.0-18.0); LYMPHOCYTES # (AUTO) 0.4 K/uL (1.0-5.5); LYMPHOCYTES % (AUTO) 4.6 % (20.5-51.5); MEAN CORPUSCULAR HEMOGLOBIN 32 pg (27-31); MEAN CORPUSCULAR HGB CONC 33 % (32-36); MEAN CORPUSCULAR VOLUME 95 fL (79.0-98.0); MONOCYTES # (AUTO) 0.6 K/uL (0.0-1.0); MONOCYTES % (AUTO) 6.2 % (1.7-9.3); NEUTROPHILS # (AUTO) 8.5 K/uL (1.8-7.7); NEUTROPHILS % (AUTO) 88.6 % (40.0-70.0); PLATELET COUNT (AUTO) 73 K/uL (130-430); RED BLOOD CELL COUNT(AUTO) 4.38 MIL/uL (4.2-6.2); RED CELL DISTRIBUTION WIDTH 15.6 % (9.0-15.0); WHITE BLOOD COUNT (AUTO) 9.6 K/uL (4.8-10.8)
[2021-10-14 06:05] LABS: INR 1.2 (0.80-1.20); PROTHROMBIN TIME 12.5 SECS (9.5-12.5)
[2021-10-14 06:19] LABS: ALBUMIN 1.7 g/dL (3.4-4.8); BILIRUBIN,DIRECT 0.9 mg/dL (0.0-0.3); CALCIUM 7.2 mg/dL (8.4-11.0); CREATININE 3.15 mg/dL (0.55-1.30); POTASSIUM 3.7 mmol/L (3.5-5.1); TOTAL BILIRUBIN 1.1 mg/dL (0.0-1.0)
[2021-10-14] MEDS: PIPERACILLIN/TAZO 3.375/DEX-IS 50 ML IV SCH ×3 (06:27→17:10)
--- NOTE | 2021-10-14 07:00 | NUR ---
Pt report given to ED Mcgill. Pt resting with eyes closed, no change in vent settings, OGT feedings remain off r/t persistent high residual >200 mL. ANA MARIA PICC patent, secure, good blood return with Precedex infusing at 1 mcg/kg/hr and NS at 50 mL/hr. Serosanguinous weeping continues near PICC site. F/C remains in place and patent with straw colored urine to tubing and bag. Total U/O this shift was 3850 mL. VSS, NAD.
[2021-10-14] MEDS: FAMOTIDINE PF 20 MG/2 ML VIAL IVP SCH (08:02)
[2021-10-14] MEDS: PANTOPRAZOLE SODIUM 40 MG/VIAL (PROTONIX) IVP SCH (08:02)
[2021-10-14] MEDS ORDERED: NS 250 ML IV ONE (09:00)
--- NOTE | 2021-10-14 09:25 | NUR ---
RT NOTES FIO2 TO 0.40 PER TITRATION ORDER. NO ADVERSE REACTIONS NOTED. WILL MONITOR PT.
[2021-10-14] MEDS: NACL 0.9% 1,000 ML IV SCH ×2 (09:51→22:17)
--- NOTE | 2021-10-14 11:55 | NUR ---
RT NOTES Per daily SBT, vent to CPAP 5 PS 10 once it was determined that pt responds to verbal stimulant, opens eyes and follows simple commands. Pt squeezed hand when asked, nodded head when asked if he wanted lights to be off and if he's comfortable. Educated on CPAP trial. No adverse reactions noted. Will monitor pt. Current HR 95, RR 28, Sat 95%, exh CO2 34. Rn was made aware.
--- NOTE | 2021-10-14 12:30 | NUR ---
Nutrition F/U Admitting Diagnosis Acute Heart Failure, Supraventricular Tachycardia Reviewed Pertinent Medical/Surgical Hx Medical Record Other Medical History Comment: PMH: Schizophrenia, depression, per physician notes TB (QFT) Gold In Tube: Negative 10/08 SARS-CoV-2 Ag (Rapid) Negative 10/07 Subjective Information: RD attended ICU rounds this morning. Witnessed TF infusing Nepro at 30 ml/hr. Primary RN reported that pt had high GRV overnight (250-300 ml), subsequently, TF was held. He stated that he checked GRV this morning (0 ml), then resumed TF at start of shift at 30 ml/hr, w/ plans to increase back to goal rate of 50 ml/hr today. He also reported water flush order of 200 ml Q6h. No BM reported. Plan to contact surgeon regarding wounds. Per EMR review, Nepro TF infusing 10/14; GRV: 500 ml 10/14; no BM noted; [place]akan scale: 7 w/ wounds noted to L foot, lower R foot, L hip, upper abd, and lower buttocks. Current TF prescription at goal rate remains adequate/appropriate. Current Diet Order/Nutrition Support: Nepro at 50 ml/hr, Free Water Flush: 200 ML Q6HRS via NGT x2 days Patient/Significant Other Unable To Verbalize Education Provided Not Indicated Pertinent Medications: piperacillin/tazobactam, pepcid, protonix IV, lopressor, levophed Pertinent Labs: BUN 70 H, CRE 3.15 H, eGFR 21 L, BG 107 H, Tbili 1.1 H, AST 56 H, ALT 221 H Height (Feet) 6 feet Height (Inches) 2.00 inches Weight (Pounds) 350 pounds -- stable since 10/11 Patient Weight 158.757 kg Body Mass Index 44.93 kg/m2 %IBW 184 [place]/Adjusted Body Weight 190#/86.4 kg Recent Weight Change unable to verify Weight Status Morbidly Obese Usual Diet At Home unable to verify NEW Estimated Energy Expenditure (kcals/day) 2660 (PSU 2009 d/t critical illness, intubation; Ve: 13.7, Tmax: 36.8'C) Estimated Protein Required (g/day) 86-104 (1-1.2 g/kg IBW d/t obesity, DIANE vs sepsis and wounds) Estimated Fluid Required (l/day) Per MD d/t DIANE Problem/Etiology/Signs/Symptoms Inadequate EN support R/T metabolic demands AEB estimated nutritional requirements for sepsis and wound healing. *Met Expected Outcomes/Goals - Monitor tolerance of EN w/ goal of pt meeting greater than 80% of estimated needs, labs trending WNL, normal GI function, skin integrity, wt maintenance. Dietitian Recommendations * Continue Nepro at 50 ml/hr (goal rate), Yeison BID, Free Water Flush: 200 ML Q6HRS (per MD) via NGT Provides: 2320 kcal/day, 102 protein/day, 1672 ml free water water/day Meets: 87% of estimated caloric needs and 98% of upper end of estimated protein needs * Consider prokinetic agent if high GRV persists Follow Up High Risk: F/U in 2-3 days
--- NOTE | 2021-10-14 12:41 | NUR ---
Dietitian Recommendations * Continue Nepro at 50 ml/hr (goal rate), Yeison BID, Free Water Flush: 200 ML Q6HRS (per MD) via NGT Provides: 2320 kcal/day, 102 protein/day, 1672 ml free water water/day Meets: 87% of estimated caloric needs and 98% of upper end of estimated protein needs * Consider prokinetic agent if high GRV persists LP, RD Please refer to Nutrition F/U for details.
[2021-10-14 13:06] LABS: ANTI-SMOOTH MUSCLE AB 12 Units (0-19)
--- NOTE | 2021-10-14 13:35 | NUR ---
RT NOTES Pt appears fatigued, vent back to AC. Rn made aware.
[2021-10-15] VITALS (34 sets, daily range): BP systolic 133–173
[2021-10-15] MEDS: DEXMEDETOMIDINE HCL 400 MCG in NS 96 ML IV PRN ×7 (01:16→22:10)
[2021-10-15] MEDS: IPRATROPIUM/ALBUTEROL SULFATE 3 ML AMPUL.NEB (DUONEB) INH SCH ×6 (03:06→23:27)
--- NOTE | 2021-10-15 05:00 | NUR ---
complete bed bath done, chg bath given, pericare and oral care done,linen changed had a runny stool,turn and reposition to comfort.
[2021-10-15 06:24] LABS: INR 1.2 (0.80-1.20); PROTHROMBIN TIME 12.7 SECS (9.5-12.5)
[2021-10-15 06:30] LABS: ALBUMIN 1.5 g/dL (3.4-4.8); BILIRUBIN,DIRECT 0.7 mg/dL (0.0-0.3); CREATININE 2.02 mg/dL (0.55-1.30); POTASSIUM 3.1 mmol/L (3.5-5.1)
[2021-10-15] MEDS: NACL 0.9% 1,000 ML IV SCH (06:31)
[2021-10-15 07:19] LABS: BASOPHILS % (AUTO) 0.3 % (0.0-2.0); EOSINOPHILS # (AUTO) 0.1 K/uL (0.0-0.4); HEMATOCRIT 40.8 % (36-54); HEMOGLOBIN 13.1 g/dL (14.0-18.0); LYMPHOCYTES # (AUTO) 0.4 K/uL (1.0-5.5); LYMPHOCYTES % (AUTO) 4.4 % (20.5-51.5); MEAN CORPUSCULAR HEMOGLOBIN 31 pg (27-31); MEAN CORPUSCULAR HGB CONC 32 % (32-36); MEAN CORPUSCULAR VOLUME 96 fL (79.0-98.0); MONOCYTES # (AUTO) 0.5 K/uL (0.0-1.0); MONOCYTES % (AUTO) 5.2 % (1.7-9.3); NEUTROPHILS # (AUTO) 8.8 K/uL (1.8-7.7); NEUTROPHILS % (AUTO) 89.1 % (40.0-70.0); PLATELET COUNT (AUTO) 88 K/uL (130-430); RED BLOOD CELL COUNT(AUTO) 4.24 MIL/uL (4.2-6.2); RED CELL DISTRIBUTION WIDTH 15.6 % (9.0-15.0); WHITE BLOOD COUNT (AUTO) 9.9 K/uL (4.8-10.8)
--- NOTE | 2021-10-15 08:00 | NUR ---
CARMEN BROWN BANKING REPRESENTATIVE IS IN CHARGE OF THIS PATIENT//PT ON LEVOPHED,TURNED OFF, BUT DIASTOLIC DROPPED TO 20S SO HAD TO RESTART//PT SGTILL NOT FOLLOWING COMMANDS OR TRACKING//MW
[2021-10-15] MEDS: PANTOPRAZOLE SODIUM 40 MG/VIAL (PROTONIX) IVP SCH (08:09)
[2021-10-15] MEDS: FAMOTIDINE PF 20 MG/2 ML VIAL IVP SCH (08:15)
[2021-10-15 08:32] LABS: CALCIUM 6.7 mg/dL (8.4-11.0)
--- NOTE | 2021-10-15 08:40 | NUR ---
PREDIDEX OFF, PT FOLLOWING COMMANDS WEANING BEGU8N ON CPAP//MW
[2021-10-15] MEDS ORDERED: POTASSIUM CHLORIDE 20 MEQ/PKT PACKET PO ONE (09:00)
--- NOTE | 2021-10-15 10:40 | NUR ---
PT TOLERATED ALMOST 2 HOURS BEFORE C/O SOB-BACK TO AC MODE ON VENT//MW
--- NOTE | 2021-10-15 15:45 | NUR ---
WOUND EVALUATION: Late note for 10/15/2021 at 1545. Wound Consult received from Dr. Camacho. Thank you, Dr. Camacho, for the consult. Patient received in a Rick Bed with a mattress, awake, alert, and oriented. Patient is unable to turn independently. Hakan Score is a 9. Past Medical History: Schizophrenia, Depression. Admitted for altered mental status, had pressure ulcers on his gluteal area, and bilateral lower extremities. Recent Labs: WBC 9.9, RBC 4.24, hemoglobin 13.1, hematocrit 40.8, platelets 88, sodium 154, potassium 3.1, chloride 118, carbon dioxide 31, BUN 37, creatinine 2.02, GFR 36, glucose 115, calcium 6.7, AST 41, ALT 149, serum total protein 5.1, albumin 1.5, PT 12.7. Microbiology: Blood culture results x2 negative. Bronchoalveolar aspirate culture results negative. Urine culture results negative. Intrinsic factors that delay wound healing: Renal Impairment, Hypoalbuminemia, Anemia, Hyperglycemia. Extrinsic factors that delay wound healing: Immobility. Wound Assessment: 1. Right Buttock: Stage III pressure ulcer, present on admission. Wound bed has 50% red tissue, 40% pink tissue, 10% yellow tissue. No odor, scant yellow drainage. Periwound intact. Wound measures 3.2 cm x 8.0 cm x 0.2 cm. 2. Right Buttock, medial to site 1: Area of dark discoloration, possible sDTI, present on admission. Open portion of site has red tissue. Site measures 6.4 cm x 0.9 cm. 3. Left Buttock: Stage II pressure ulcer, present on admission. Site has multiple small nonintact skin areas from MASD. Sites of red tissue. No odor, no drainage. Recommend: Cleanse wounds with normal saline. Apply Calmoseptine cream to sites and maria c-wounds. Apply Venelex ointment to any wound not covered by Calmoseptine cream. Cover sites with nonadhesive foam dressings, secure with transparent dressings. Perform wound care daily, and as needed for dressing soiling or dislodgement. 4. Left Lateral Hip: Unstageable pressure ulcer, present on admission. Wound bed has 90% brown slough, 5% yellow slough, 5% red tissue. No odor, no drainage. Periwound intact. Wound measures 1.8 cm x 6.7 cm x 0.3 cm. Recommend: Cleanse wound with normal saline. Apply Calmoseptine cream to periwound. Apply Venelex ointment to wound bed. Pack wound with 1/2 inch iodoform packing strip. Cover site with foam dressing. Perform wound care daily, and as needed for dressing soiling or dislodgment. 5. Left Lateral Ankle: Unstageable pressure ulcer, present on admission. Site has 70% pink tissue, 50% yellow slough, 15% black eschar. No odor, scant yellow drainage. Periwound intact. Wound measures 6.0 cm x 11.0 cm. Recommend: Cleanse wound with normal saline. Apply Calmoseptine cream to periwound. Apply Venelex ointment to wound bed. Cover site with foam dressing. Perform wound care daily, and as needed for dressing soiling or dislodgment. 6. Left Proximal Posterior Calf: Unstageable pressure ulcer, present on admission. Wound is status post surgical debridement. Wound bed has 50% pink tissue, 20% red tissue, 20% yellow tissue, 10% black tissue. No odor, small sanguineous drainage. Periwound intact. Wound measures 11.0 cm x 13.0 cm 7. Left Posterior Calf, inferior to site 6: Unstageable pressure ulcer, present on admission. Wound bed has 60% pink tissue, 40% yellow slough. No odor, no drainage. Periwound intact. Wound measures 6.0 cm x 2.1 cm. Recommend: Cleanse wounds with normal saline. Apply Calmoseptine cream to periwounds. Apply Venelex ointment to wound beds. Cover site with nonadhesive foam dressings, wrap with Karthik wrap. Perform wound care daily, and as needed for dressing soiling or dislodgment. 8. Left Dorsal Medial Foot: Unstageable pressure ulcer, present on admission. Wound bed has 95% black eschar, 5% yellow eschar. No odor, no drainage. Periwound intact. Dry, stable. Wound measures 2.0 cm x 8.5 cm. Recommend: Apply Betadine to wound. Allow Betadine to air dry. Cover site with foam dressings for protection, with Karthik wrap.. Change dressings daily, and as needed for dressing soiling or dislodgment. 9. Right Mid Lateral Thigh: Healed wound, present on admission. Site has pink tissue with black discolored skin surrounding. Recommend: Apply Calmoseptine cream to site. Perform site care qshift and as needed for soiling. 10. Right Mid Posterior Calf: Multiple scattered open areas, present on admission. Sites have 50% pink tissue, 50% yellow tissue. No odor, no drainage. Appears to be moisture related from weeping of the extremity (extremity has moderate yellow drainage weeping from the skin surrounding the wound as well as weeping in the general Area. Total area of open sites measure 9.0 cm x 6.0 cm. Recommend: Cleanse site with normal saline. Apply Calmoseptine cream to site. Apply Venelex ointment to any open site not covered by Calmoseptine cream. Applied nonadhesive foam dressings, ABD pads, and wrap with Karthik wrap. Perform site care daily, and as needed for dressing soiling or dislodgment. Also recommend: Reposition patient side to side only every 2 hours with pillow support and off-load pressure areas with pillows for pressure re-distribution. Offload, elevate and float bilateral heels with 1 pillow lengthwise under each extremity (with 1 pillow horizontally just superior to Achilles areas at all times. Perform skin care and monitor skin integrity Q shift. Use Calmoseptine cream on buttocks and other moisture susceptible areas QID and as needed for soiling. Place patient on a P500 low air-loss mattress.
[2021-10-15] MEDS ORDERED: FUROSEMIDE 20 MG/2 ML VIAL IVP ONE (17:15)
[2021-10-15] MEDS: AMMONIUM LACTATE 226 GM LOTION TP SCH (21:55)
[2021-10-16] VITALS (23 sets, daily range): BP systolic 110–170
[2021-10-16] MEDS: DEXMEDETOMIDINE HCL 400 MCG in NS 96 ML IV PRN ×2 (01:00→05:00)
[2021-10-16] MEDS ORDERED: DEXMEDETOMIDINE HCL 200 MCG/2 ML VIAL IV ONE ×2 (01:33→04:52)
[2021-10-16] MEDS: IPRATROPIUM/ALBUTEROL SULFATE 3 ML AMPUL.NEB (DUONEB) INH SCH ×6 (03:46→23:00)
[2021-10-16 06:36] LABS: BASOPHILS % (AUTO) 0.2 % (0.0-2.0); EOSINOPHILS # (AUTO) 0.1 K/uL (0.0-0.4); EOSINOPHILS % (AUTO) 1.1 % (0.0-4.0); HEMATOCRIT 42.4 % (36-54); HEMOGLOBIN 13.7 g/dL (14.0-18.0); LYMPHOCYTES # (AUTO) 0.7 K/uL (1.0-5.5); LYMPHOCYTES % (AUTO) 7.5 % (20.5-51.5); MEAN CORPUSCULAR HEMOGLOBIN 31 pg (27-31); MEAN CORPUSCULAR HGB CONC 32 % (32-36); MEAN CORPUSCULAR VOLUME 96 fL (79.0-98.0); MONOCYTES # (AUTO) 0.7 K/uL (0.0-1.0); MONOCYTES % (AUTO) 7.6 % (1.7-9.3); NEUTROPHILS # (AUTO) 7.4 K/uL (1.8-7.7); NEUTROPHILS % (AUTO) 83.6 % (40.0-70.0); PLATELET COUNT (AUTO) 107 K/uL (130-430); RED BLOOD CELL COUNT(AUTO) 4.42 MIL/uL (4.2-6.2); RED CELL DISTRIBUTION WIDTH 15.3 % (9.0-15.0); WHITE BLOOD COUNT (AUTO) 8.9 K/uL (4.8-10.8)
[2021-10-16 06:56] LABS: CALCIUM 7.2 mg/dL (8.4-11.0); CREATININE 1.54 mg/dL (0.55-1.30)
[2021-10-16] MEDS: PANTOPRAZOLE SODIUM 40 MG/VIAL (PROTONIX) IVP SCH (09:21)
[2021-10-16] MEDS: BALSAM PERU/CASTOR OIL 56.7 GM OINT...G. TP SCH (09:21)
[2021-10-16] MEDS: FAMOTIDINE PF 20 MG/2 ML VIAL IVP SCH (09:21)
[2021-10-16] MEDS ORDERED: POTASSIUM CHLORIDE 20 MEQ/PKT PACKET NG ONE (09:30)
[2021-10-16] MEDS: D5W 1,000 ML IV SCH (10:20)
[2021-10-16] MEDS ORDERED: POTASSIUM CHLORIDE 40 MEQ in D5W 250 ML IV ONE (11:00)
[2021-10-16] MEDS: EMOLLIENT COMBINATION NO.73 78 GM CREAM..G. TP SCH (11:57)
--- NOTE | 2021-10-16 21:00 | NUR ---
RT NOTES CALLED TO BEDSIDE DUE TO PT SELF EXTUBATION. ARRIVED AT BEDSIDE PT IN NO RESPIRATORY DISTRESS. VITAL SIGNS WNL. B/S DIMINISHED. PLACED ON NASAL CANNULA AT 6LPM. ABG TO BE OBTAINED POST 1 HR Addendum: 10/16/21 at 2202 by Dre Aly RT Amended: Links added.
--- NOTE | 2021-10-16 22:04 | NUR ---
DR. ERICK ONTIVEROS PAGED AT THIS TIME. SPOKE WITH MIKE AT THE EXCHANGE.
[2021-10-16] MEDS: AMMONIUM LACTATE 226 GM LOTION TP SCH (22:09)
--- NOTE | 2021-10-16 22:28 | NUR ---
DR. ERICK ONTIVEROS MADE AWARE OF PT SELF EXTUBATION AND ABG RESULTS. PER CONTINUE TO MONITOR AND OK TO USE BIPAP IF NECESSARY. WILL CONTINUE TO MONITOR PT.
[2021-10-17] VITALS (16 sets, daily range): BP systolic 105–166
[2021-10-17] MEDS: D5W 1,000 ML IV SCH (00:29)
[2021-10-17] MEDS: IPRATROPIUM/ALBUTEROL SULFATE 3 ML AMPUL.NEB (DUONEB) INH SCH ×5 (03:00→23:05)
[2021-10-17] MEDS: DEXMEDETOMIDINE HCL 400 MCG in NS 96 ML IV PRN ×2 (04:44→07:52)
[2021-10-17] MEDS ORDERED: DEXMEDETOMIDINE HCL 200 MCG/2 ML VIAL IV ONE (05:08)
[2021-10-17 07:07] LABS: BASOPHILS % (AUTO) 0.4 % (0.0-2.0); EOSINOPHILS # (AUTO) 0.2 K/uL (0.0-0.4); EOSINOPHILS % (AUTO) 2.3 % (0.0-4.0); HEMATOCRIT 40.7 % (36-54); HEMOGLOBIN 13.2 g/dL (14.0-18.0); LYMPHOCYTES # (AUTO) 0.6 K/uL (1.0-5.5); LYMPHOCYTES % (AUTO) 7.3 % (20.5-51.5); MEAN CORPUSCULAR HEMOGLOBIN 31 pg (27-31); MEAN CORPUSCULAR HGB CONC 33 % (32-36); MEAN CORPUSCULAR VOLUME 97 fL (79.0-98.0); MONOCYTES # (AUTO) 0.7 K/uL (0.0-1.0); MONOCYTES % (AUTO) 7.9 % (1.7-9.3); NEUTROPHILS # (AUTO) 7.1 K/uL (1.8-7.7); NEUTROPHILS % (AUTO) 82.1 % (40.0-70.0); PLATELET COUNT (AUTO) 157 K/uL (130-430); RED BLOOD CELL COUNT(AUTO) 4.21 MIL/uL (4.2-6.2); RED CELL DISTRIBUTION WIDTH 15.6 % (9.0-15.0); WHITE BLOOD COUNT (AUTO) 8.7 K/uL (4.8-10.8)
[2021-10-17 07:27] LABS: ALBUMIN 1.6 g/dL (3.4-4.8); CALCIUM 7.4 mg/dL (8.4-11.0); CREATININE 1.35 mg/dL (0.55-1.30); TOTAL BILIRUBIN 1.1 mg/dL (0.0-1.0)
--- NOTE | 2021-10-17 08:00 | NUR ---
CARMEN BACON NURSE IS IN CHARGE OF THIS PATIENT/PT RIGHT ARM IS VERY SWOLLEN, POSSIBLE DVT BUT PT REFUSES TO ALLOW IV STARTED ANYWHERE ELSE/PT EXTUBATED SELF LAST NIGHT, AND TOLERATES ICE CHIPS SO AWAIT SWALLOW THERAPIST/PT ACTUALLY IS ORIENTED, FOLLOWING COMMANDS-VS STABLE//MW
[2021-10-17] MEDS: BALSAM PERU/CASTOR OIL 56.7 GM OINT...G. TP SCH (08:15)
[2021-10-17] MEDS: PANTOPRAZOLE SODIUM 40 MG/VIAL (PROTONIX) IVP SCH (08:15)
[2021-10-17] MEDS: FAMOTIDINE PF 20 MG/2 ML VIAL IVP SCH (08:15)
[2021-10-17] MEDS: EMOLLIENT COMBINATION NO.73 78 GM CREAM..G. TP SCH ×2 (08:16→09:50)
[2021-10-17 08:44] LABS: POTASSIUM 2.9 mmol/L (3.5-5.1)
[2021-10-17] MEDS ORDERED: POTASSIUM CHLORIDE 20 MEQ/PKT PACKET PO ONE (10:00)
--- NOTE | 2021-10-17 10:21 | NUR ---
PAGED FOR JANET SHARP DIALED [phone] LEFT VOICEMAIL DIALED PT [id number] LEFT VOICEMAIL
[2021-10-17] MEDS: KCL 40 mEq in D5W 1000 mL 1,000 ML IV SCH ×2 (10:30→20:30)
[2021-10-17] MEDS: LORazepam 2 MG/ML VIAL IVP PRN (11:09)
[2021-10-17] MEDS: HYDROcodone/ACETAMIN 5-325 MG TAB (NORCO/ VICODIN) PO PRN (12:29)
[2021-10-17] MEDS ORDERED: NALOXONE HCL 0.4 MG/ML AMP (NARCAN) IVP PRN (12:30)
--- NOTE | 2021-10-17 16:00 | NUR ---
PT RIGHT ARM VERY, UNABLE TO PERIPHERAL LINE DUE TO PT EDEMA, CALLED MD QUINONEZ, PICC AND DUPLEX ORDERED//MW
[2021-10-17 18:51] LABS: INR 1.1 (0.80-1.20)
--- NOTE | 2021-10-17 19:15 | NUR ---
change of shift.pt.presents quiescent affect;calm,resting.pt.presents speech status:non-verbal.pt.presents affect lethargic withdrawn.pt.presents no iv access. picc line to be placed:10/17/21.general status stable.respiratory status stable:pt.receiving administration o2 therapy via nasal cannulae.rate:4l/min.02-sat%=94%.call light w/in access of the pt.
--- NOTE | 2021-10-17 20:00 | NUR ---
pt.assessed.v/s assessed values wnl.o2-sat%=96%.per flacc pain mgx pt.absent facial grimaces/body posturing.pt.assessed for cleanliness.pt.repositioned.call light placed w/in access of the pt.
[2021-10-17] MEDS: AMMONIUM LACTATE 226 GM LOTION TP SCH (20:50)
--- NOTE | 2021-10-17 22:00 | NUR ---
pt.assesssed.v/s assessed note o2-sat%.picc line [email or web address] PlACEment OF picc line IN PROGReSS.per FLACc pain MGX PT.ABSEnt FACIaL GRiMaCES/BODY PosTuRing.I HAVe ATtEnded TO THe [place] CATH.call light w/in access of the pt.
--- NOTE | 2021-10-17 23:00 | NUR ---
cxr confirmed placement picc line.resumed administration iv fluids.
[2021-10-18] VITALS (24 sets, daily range): BP systolic 116–170
--- NOTE | 2021-10-18 | NUR ---
pt.assessed.v/s assessed values wnl.o2-sat%=96%.picc line intact iv fluids infusing.granados cath intact;patent.per flacc pain mgx pt.absent facial grimaces/body posturing.pt.assessed for cleanliness.pt.repositioned.call light placed w/in access of the pt.
--- NOTE | 2021-10-18 02:00 | NUR ---
pt.assessed.v/s assessed values wnl.note b/p status.o2-sat%=96%.picc line intact iv fluids infusing.per flacc pain mgx pt.absent facial grimaces/body posturing.granados cath intact;patent.pt.assessed for cleanliness.pt.repositioned.call light placed w/in access of the pt.
[2021-10-18] MEDS: IPRATROPIUM/ALBUTEROL SULFATE 3 ML AMPUL.NEB (DUONEB) INH SCH ×6 (03:05→23:00)
--- NOTE | 2021-10-18 04:00 | NUR ---
pt.assessed.v/s assessed values note b/p elevated.to administer lopressor ivp.picc intact iv fluids infusing.granados cath intact;patent. per flacc pain mgx pt.absent facial grimaces/body posturing.pt.assessed for cleanliness.pt.repositioned.call light placed w/in access of the pt.
[2021-10-18] MEDS: KCL 40 mEq in D5W 1000 mL 1,000 ML IV SCH ×2 (04:37→17:34)
[2021-10-18] MEDS: METOPROLOL TARTRATE 5 MG/5 ML AMPUL IVP PRN (04:41)
[2021-10-18 06:49] LABS: CALCIUM 7.5 mg/dL (8.4-11.0); CREATININE 1.47 mg/dL (0.55-1.30)
[2021-10-18 07:27] LABS: BASOPHILS % (AUTO) 0.4 % (0.0-2.0); EOSINOPHILS # (AUTO) 0.1 K/uL (0.0-0.4); EOSINOPHILS % (AUTO) 0.7 % (0.0-4.0); HEMATOCRIT 39.9 % (36-54); HEMOGLOBIN 12.8 g/dL (14.0-18.0); LYMPHOCYTES # (AUTO) 0.8 K/uL (1.0-5.5); LYMPHOCYTES % (AUTO) 7.9 % (20.5-51.5); MEAN CORPUSCULAR HEMOGLOBIN 31 pg (27-31); MEAN CORPUSCULAR HGB CONC 32 % (32-36); MEAN CORPUSCULAR VOLUME 96 fL (79.0-98.0); MONOCYTES # (AUTO) 0.9 K/uL (0.0-1.0); NEUTROPHILS # (AUTO) 7.6 K/uL (1.8-7.7); PLATELET COUNT (AUTO) 171 K/uL (130-430); RED BLOOD CELL COUNT(AUTO) 4.14 MIL/uL (4.2-6.2); RED CELL DISTRIBUTION WIDTH 15.5 % (9.0-15.0); WHITE BLOOD COUNT (AUTO) 9.5 K/uL (4.8-10.8)
[2021-10-18] MEDS: FAMOTIDINE PF 20 MG/2 ML VIAL IVP SCH (08:15)
[2021-10-18 08:55] LABS: POTASSIUM 2.7 mmol/L (3.5-5.1)
[2021-10-18] MEDS ORDERED: ENOXAPARIN SODIUM 40 MG/0.4 ML SYRINGE SUBCUT SCH ×2 (09:00→21:00)
[2021-10-18] MEDS: PANTOPRAZOLE SODIUM 40 MG/VIAL (PROTONIX) IVP SCH (09:30)
[2021-10-18] MEDS ORDERED: KCL 40 mEq in 100 mL (PREMIX) 100 ML IV ONE ×2 (10:00→14:00)
--- NOTE | 2021-10-18 10:57 | NUR ---
Nutritional F/U Admitting Diagnosis Acute Heart Failure, Supraventricular Tachycardia Reviewed Pertinent Medical/Surgical Hx Medical Record Other Medical History Comment: PMH: Schizophrenia, depression, per physician notes TB (QFT) Gold In Tube: Negative 10/08 SARS-CoV-2 Ag (Rapid) Negative 10/07 Subjective Information: RD attended ICU rounds this morning. Pt on 4L NC; v. weak verbally; pt NPO awaiting ST swallow eval. RD informed RN of active TF order, RN reported she would D/C it. Per physician notes, pt self extubated 10/16; awaiting ST swallow evaluation prior to diet advancement. Per EMR review, Nepro TF infusing 10/17; TF rate 50 ml/hr 10/17; GRV: 0 ml 10/17; Hakan scale: 10 w/ wounds noted to L foot, lower R foot, L hip, upper abd, and lower buttocks; w/ 3+ pitting edema to BUE and BLE; abd is firm and distended w/ hypoactive bowel sounds; last BM 10/18 x1. F/U w/ results of ST swallow evaluation. Pt currently NPO and not meeting nutritional needs. Current Diet Order/Nutrition Support: Nepro at 50 ml/hr, Yeison BID, Free Water Flush: 200 ML Q6HRS via NGT x4 days Patient/Significant Other Unable To Verbalize Education Provided Not Indicated Pertinent Medications: pepcid, protonix IV, lopressor, levophed, lovenox, lactic acid, KCl D5W at 100 ml/hr (408 kcals/day) Pertinent Labs: Na 160 H, K 2.7 L, Cl 122 H, BUN 26 H, Cr 1.47 H, Ca 7.5 L Height (Feet) 6 feet Height (Inches) 2.00 inches Weight (Pounds) 350 pounds -- NEW WT: (10/18) 329# 6oz/149.4 kg - 30# wt loss possibly d/t fluid loss a/w Lasix therapy, gradual wt loss appropriate d/t morbid obesity. Patient Weight 158.757 kg Body Mass Index 44.93 kg/m2- NEW BMI 42.3 kg/m2 %IBW 184 Usk/Adjusted Body Weight 190#/86.4 kg Recent Weight Change unable to verify Weight Status Morbidly Obese Usual Diet At Home unable to verify NEW Estimated Energy Expenditure (kcals/day) 5488-9196 (30-35 kcals/kg IBW d/t morbid obesity and wounds) Estimated Protein Required (g/day) 86-104 (1-1.2 g/kg IBW d/t obesity, DIANE vs sepsis and wounds) Estimated Fluid Required (l/day) Per MD d/t DIANE Problem/Etiology/Signs/Symptoms Inadequate EN support R/T metabolic demands AEB estimated nutritional requirements for sepsis and wound healing. *N/A - pt extubated Increased nutritional needs R/T physiological demands AEB estimated nutritional requirements for wound healing and sepsis. *NEW Expected Outcomes/Goals - Monitor tolerance of EN/oral intake w/ goal of pt meeting greater than 80% of estimated needs, labs trending WNL, normal GI function, skin integrity, wt maintenance. Dietitian Recommendations * F/U w/ results if ST swallow evaluation * If safe for PO intake, Recommend Cardiac diet, Ensure Enlive BID, Yeison BID texture per ST (Supplements yield additional 880 kcals/day, 45 g protein/day) * If pt is not safe for PO intake, Recommend Jevity 1.5 at 65 ml/hr (goal rate), Yeison BID, FWF per MD (Provides 2500 kcals/day, 104 g protein/day) Follow Up High Risk: F/U in 2-3 days
--- NOTE | 2021-10-18 10:57 | NUR ---
Dietitian Recommendations * F/U w/ results if ST swallow evaluation * If safe for PO intake, Recommend Cardiac diet, Ensure Enlive BID, Yeison BID texture per ST (Supplements yield additional 880 kcals/day, 45 g protein/day) * If pt is not safe for PO intake, Recommend Jevity 1.5 at 65 ml/hr (goal rate), Yeison BID, FWF per MD (Provides 2500 kcals/day, 104 g protein/ day) Please refer to Nutrition F/U for details.
[2021-10-18] MEDS ORDERED: FUROSEMIDE 40 MG/4 ML VIAL IVP ONE (15:00)
[2021-10-18] MEDS: BALSAM PERU/CASTOR OIL 56.7 GM OINT...G. TP SCH (16:34)
[2021-10-18] MEDS: EMOLLIENT COMBINATION NO.73 78 GM CREAM..G. TP SCH (16:34)
--- NOTE | 2021-10-18 17:51 | NUR ---
ST EVALUATION COMPLETED. ST TX NOT INDICATED AT THIS TIME. RECOMMEND PO INTAKE OF PUREE/THIN LIQUID WITH 1:1 ASSISTANCE AND FULL ASPIRATION PRECAUTIONS
--- NOTE | 2021-10-18 19:30 | NUR ---
Opening Received report on pt. Pt lethargic, arousable, on bipap FiO2 30%. Pt in no signs of pain or distress, able to follow commands, states no pain or discomfort. Multiple skin issues and BLE and BUE edema noted, pt on low air loss bed. Pt with IVF infusing to left upper arm PICC line. Sheridan in place draining yellow urine to gravity.
[2021-10-18] MEDS: FUROSEMIDE 40 MG/4 ML VIAL IVP SCH (20:26)
[2021-10-18] MEDS: POTASSIUM CHLORIDE 20 MEQ TAB.PRT.SR PO SCH (20:27)
--- NOTE | 2021-10-18 20:39 | NUR ---
Switched pt to oxymizer 6L, saturating well. Administered PO meds with applesauce, pt tolerated well, but pt requesting to go back to bipap after 5-[address] pt back to bipap.
[2021-10-18] MEDS: AMMONIUM LACTATE 226 GM LOTION TP SCH (21:00)
[2021-10-18] MEDS: LORazepam 2 MG/ML VIAL IVP PRN (23:14)
--- NOTE | 2021-10-18 23:14 | NUR ---
Pt noted with legs over side rail, reoriented pt to room and situation. Bed locked in lowest position with bed alarm on. Administered PRN medication for agitation.
[2021-10-19] VITALS (27 sets, daily range): BP systolic 92–148
--- NOTE | 2021-10-19 01:31 | NUR ---
PATIENT RESTING: Patient resting quietly. No acute distress noted. Vital signs within normal range.
[2021-10-19] MEDS: KCL 40 mEq in D5W 1000 mL 1,000 ML IV SCH ×3 (02:31→22:46)
[2021-10-19] MEDS: IPRATROPIUM/ALBUTEROL SULFATE 3 ML AMPUL.NEB (DUONEB) INH SCH ×6 (02:55→23:05)
[2021-10-19 06:08] LABS: BASOPHILS % (AUTO) 0.3 % (0.0-2.0); EOSINOPHILS # (AUTO) 0.2 K/uL (0.0-0.4); EOSINOPHILS % (AUTO) 1.2 % (0.0-4.0); HEMOGLOBIN 12.3 g/dL (14.0-18.0); LYMPHOCYTES # (AUTO) 1.3 K/uL (1.0-5.5); LYMPHOCYTES % (AUTO) 10.3 % (20.5-51.5); MEAN CORPUSCULAR HEMOGLOBIN 31 pg (27-31); MEAN CORPUSCULAR HGB CONC 32 % (32-36); MEAN CORPUSCULAR VOLUME 95 fL (79.0-98.0); MONOCYTES # (AUTO) 1.1 K/uL (0.0-1.0); MONOCYTES % (AUTO) 8.6 % (1.7-9.3); NEUTROPHILS % (AUTO) 79.6 % (40.0-70.0); PLATELET COUNT (AUTO) 190 K/uL (130-430); RED BLOOD CELL COUNT(AUTO) 3.99 MIL/uL (4.2-6.2); RED CELL DISTRIBUTION WIDTH 15.3 % (9.0-15.0); WHITE BLOOD COUNT (AUTO) 12.6 K/uL (4.8-10.8)
[2021-10-19 06:23] LABS: CALCIUM 7.7 mg/dL (8.4-11.0); CREATININE 1.46 mg/dL (0.55-1.30); POTASSIUM 3.1 mmol/L (3.5-5.1)
--- NOTE | 2021-10-19 07:10 | NUR ---
RT NOTES Per Dr Lorenzo, pt was taken off BIPAP and placed on 4L oxymizer. Pt was re-educated on deep-breathing, nodded to confirm understanding. Will cont. to monitor pt. @6650 Rn was notified.
[2021-10-19] MEDS: PANTOPRAZOLE SODIUM 40 MG/VIAL (PROTONIX) IVP SCH (09:00)
[2021-10-19] MEDS: FAMOTIDINE PF 20 MG/2 ML VIAL IVP SCH (09:01)
[2021-10-19] MEDS: FUROSEMIDE 40 MG/4 ML VIAL IVP SCH ×2 (09:01→20:47)
[2021-10-19] MEDS: POTASSIUM CHLORIDE 20 MEQ TAB.PRT.SR PO SCH ×2 (09:02→20:47)
[2021-10-19] MEDS: BALSAM PERU/CASTOR OIL 56.7 GM OINT...G. TP SCH (09:03)
[2021-10-19] MEDS: EMOLLIENT COMBINATION NO.73 78 GM CREAM..G. TP SCH (10:47)
[2021-10-19] MEDS: METOPROLOL TARTRATE 5 MG/5 ML AMPUL IVP PRN (10:54)
[2021-10-19] MEDS ORDERED: ENOXAPARIN SODIUM 80 MG/0.8 ML SYRINGE SUBCUT ONE (11:15)
--- NOTE | 2021-10-19 11:32 | NUR ---
RECV'D REPORT FROM BYRCE RN. PT A/A/O X 2-3. KNOWS NAME, GENEVIEVE, AND THAT HE IS IN HOSPITAL. PT COMPLIANT AT THIS TIME. TOLERATED 25% OF BREAKFAST TRAY WITHOUT S/SX OF ASPIRATION. RT PLACED PT ON 4L OXIMIZER, PT CONT TO BE TACHYPNEIC WITH RATE IN 30'S, O2 SAT 93-96%. LUNG SOUNDS WITH DIMINISHED BASES R>L WITH BILATERAL FINE CRACKLES ON AUSCULTATION. CONT ON HAZARDOUS MATERIAL SPECIALIST WITH HR 125-130 SUSTAINED. LOPRESSOR IVP GIVEN AND HR DECREASED TO 110-115. DENIES ANY PAIN/DISCOMFORT. WOUND CARE PROVIDED. PT SEEN BY DR. NUNN THIS AM AND CLEARED TO TRANSFER TO TELEMETRY. NO BED AVAILABLE AT THIS TIME. PICC LINE PATENT TO RIGHT UPPER ARM. DRESSING C/D/I. ALL NEEDS ATTENDED TO. CALL LIGHT IN REACH. WILL CONT TO MONITOR.
--- NOTE | 2021-10-19 12:10 | NUR ---
RT NOTES Pt. appears tired, remains tachypneic despite HHN tx. Placed pt back on BIPAP with same settings 15/8 BUR 16 30%. Alarms are set and audible at nurse's station. Bipap to red outlet. Will monitor pt.
--- NOTE | 2021-10-19 12:15 | NUR ---
PT WITH INCREASED RR IN HIGH 30'-40, DENIES ANY SOB AT THIS TIME. PT APPEARS ANXIOUS WITH SLOW VERBAL RESPONSE. DECREASED STIMULI IN ROOM PER PT REQUEST. ATIVAN IVP GIVEN. AFTER 10-15 MIN PT RR SUSTAINED 40-43. PLACED PT BACK ON BIPAP. RT MARION NOTIFIED. SPACE MASK PLACED ON PT BY MARION. RR NOW DECREASED TO 26-30.
[2021-10-19] MEDS: LORazepam 2 MG/ML VIAL IVP PRN (12:22)
--- NOTE | 2021-10-19 12:47 | NUR ---
PT RR BACK UP 35-[address] SHARP. NEW ORDER FOR CXR AND ABG. ORDER PLACED CPOE. RT PAGED FOR ABG.
--- NOTE | 2021-10-19 14:00 | NUR ---
PT WITH 1200 TEMP OF 99.1, NOW 102.1. TYLENOL SUPPOSITORY GIVEN. ABG DONE WITH PH 7.5 CO2 39 PO2 89 HCO3 30. CXR DONE. COOLING MEASURES INITIATED. PAGED DR. SHARP TO UPDATE. WAITING FOR CALL BACK.
--- NOTE | 2021-10-19 14:42 | NUR ---
BLOOD CX'S COLLECTED. URINE SENT TO LAB. DR. SHARP NOW ON UNIT, ASSESSED PT AND WANTS TO INTUBATE. PT AGREES TO BE INTUBATED. RT NOTIFIED.
[2021-10-19] MEDS ORDERED: RAPID SEQUENCE INTUBATION KIT IV ONE (14:45)
[2021-10-19] MEDS ORDERED: ROCURONIUM BROMIDE 10 MG/ML (ZEMURON) IV ONE ×2 (14:45→17:06)
[2021-10-19] MEDS ORDERED: ETOMIDATE 20 MG/ 10 ML VIAL (AMIDATE) IVP ONE ×2 (14:45→17:06)
[2021-10-19 14:51] LABS: BILIRUBIN,URINE NEGATIVE (NEGATIVE); BLOOD, URINE 3+ (NEGATIVE); CLARITY/URINE CLEAR (CLEAR); COLOR,URINE YELLOW (YELLOW); GLUCOSE,URINE NEGATIVE (NEGATIVE); KETONES,URINE NEGATIVE (NEGATIVE); LEUKOCYTE ESTERASE ,URINE NEGATIVE (NEGATIVE); NITRITE, URINE NEGATIVE (NEGATIVE); PH,URINE 7.5 (5.0-8.0); PROTEIN URINE 1+ (NEGATIVE)
--- NOTE | 2021-10-19 14:53 | NUR ---
RT NOTES Pt. was intubated by Dr Montes with 8.0 ETT secure at 25cm. Bilateral breath sound/ chest rise noted. CO2 detector changed to yellow, misting noted in ETT. Pt. to vent AC 18 450 +5 100%. Alarms set and audible at nurse's station, vent to red outlet. Pt. appears to tolerate settings well. Sputum collected, endorsed to Lab. Will monitor pt. Will draw ABG.
[2021-10-19 14:58] LABS: BACTERIA,URINE RARE /HPF (None Seen); MUCUS,URINE 1+ /LPF (None Seen); WBC,URINE 0-3 /HPF (0-3)
[2021-10-19] MEDS: PROPOFOL DRIP 100 ML IV PRN ×3 (15:03→21:30)
--- NOTE | 2021-10-19 15:40 | NUR ---
ETOMIDATE AND ROCC GIVEN IVP. PT INTUBATED AT [address] SHARP. ET TUBE 8.0, 25 CM LIPLINE. OGT INSERTED. CXR ORDERED FOR PLACEMENT OF ET TUBE AND OG TUBE. PROPOFOL ORDERED FOR SEDATION. MED HUNG AND RUNNING AT 30 MCG/KG/MIN. BILATERAL WRIST RESTRAINTS IN PLACE.
[2021-10-19] MEDS: PIPERACILLIN/TAZO 3.375/DEX-IS 50 ML IV SCH ×2 (18:31→23:35)
--- NOTE | 2021-10-19 19:30 | NUR ---
Opening Received report on pt. Pt intubated to vent, sedated with diprivan drip and IVF infusing to left UA PICC. OGT in place and clamped. Bilateral soft wrist restraints in place for safety until goal doan level met. Sheridan in place draining yellow urine to gravity.
--- NOTE | 2021-10-19 19:35 | NUR ---
RT NOTES ADVANCED ETT 2CM PER DR SHARP. 8.0 ETT SECURED @ 27 LIP LINE. BILAT B/S AUSCULTATED WITH BILAT CHEST RISE OBSERVED. NO SOB NOTED. ED LI AT BEDSIDE. Addendum: 10/19/21 at 2023 by Dre Aly RT Amended: Links added.
--- NOTE | 2021-10-19 20:36 | NUR ---
Dr. Montes paged and returned call, updated on pt's status and informed about pt's previous vent settings, states to keep tidal volume as is and may start morphine drip if needed. New orders made.
[2021-10-19] MEDS ORDERED: NALOXONE HCL 0.4 MG/ML AMP (NARCAN) IVP PRN (20:45)
[2021-10-19] MEDS ORDERED: MORPHINE SULFATE IN 0.9 % NACL 100 ML IV PRN (20:45)
[2021-10-19] MEDS: AMMONIUM LACTATE 226 GM LOTION TP SCH (20:48)
[2021-10-19] MEDS: ENOXAPARIN SODIUM 80 MG/0.8 ML SYRINGE SUBCUT SCH (20:48)
[2021-10-19] MEDS ORDERED: ENOXAPARIN SODIUM SUBCUT SCH ×2 (21:00)
[2021-10-20] VITALS (32 sets, daily range): BP systolic 21–137
[2021-10-20] MEDS: PROPOFOL DRIP 100 ML IV PRN ×5 (01:47→20:59)
[2021-10-20] MEDS: IPRATROPIUM/ALBUTEROL SULFATE 3 ML AMPUL.NEB (DUONEB) INH SCH ×5 (03:05→20:58)
[2021-10-20] MEDS: PIPERACILLIN/TAZO 3.375/DEX-IS 50 ML IV SCH ×3 (05:10→17:02)
[2021-10-20 05:58] LABS: BASOPHILS # (AUTO) 0.1 K/uL (0.0-0.2); BASOPHILS % (AUTO) 1.2 % (0.0-2.0); EOSINOPHILS # (AUTO) 0.2 K/uL (0.0-0.4); HEMOGLOBIN 12.1 g/dL (14.0-18.0); LYMPHOCYTES # (AUTO) 1.4 K/uL (1.0-5.5); LYMPHOCYTES % (AUTO) 11.5 % (20.5-51.5); MEAN CORPUSCULAR HEMOGLOBIN 31 pg (27-31); MEAN CORPUSCULAR HGB CONC 32 % (32-36); MEAN CORPUSCULAR VOLUME 96 fL (79.0-98.0); MONOCYTES # (AUTO) 0.8 K/uL (0.0-1.0); MONOCYTES % (AUTO) 6.5 % (1.7-9.3); NEUTROPHILS # (AUTO) 9.5 K/uL (1.8-7.7); NEUTROPHILS % (AUTO) 78.8 % (40.0-70.0); PLATELET COUNT (AUTO) 178 K/uL (130-430); RED BLOOD CELL COUNT(AUTO) 3.95 MIL/uL (4.2-6.2)
[2021-10-20 06:18] LABS: CALCIUM 7.4 mg/dL (8.4-11.0); CREATININE 1.81 mg/dL (0.55-1.30); POTASSIUM 4.1 mmol/L (3.5-5.1)
--- NOTE | 2021-10-20 07:15 | NUR ---
RECEIVED PT IN BED #1, STABLE, REMAINS ON PROPOFOL 25mcg, INTUBATED, NAD, VSS, AROUSABLE. PT STATUS HAS NOT IMPROVED TOO MUCH, AWAITING ADDITIONAL ASSESSMENTS BY MULTIPLE DISCIPLINARY MDs FOR PLAN OF CARE WITH DISPOSITION.
[2021-10-20] MEDS: FAMOTIDINE PF 20 MG/2 ML VIAL IVP SCH (08:41)
[2021-10-20] MEDS: KCL 40 mEq in D5W 1000 mL 1,000 ML IV SCH ×2 (08:41→22:05)
[2021-10-20] MEDS: ENOXAPARIN SODIUM 80 MG/0.8 ML SYRINGE SUBCUT SCH ×2 (08:42→22:37)
[2021-10-20] MEDS: BALSAM PERU/CASTOR OIL 56.7 GM OINT...G. TP SCH (08:42)
[2021-10-20] MEDS: FUROSEMIDE 40 MG/4 ML VIAL IVP SCH ×2 (08:42→22:31)
[2021-10-20] MEDS: POTASSIUM CHLORIDE 20 MEQ TAB.PRT.SR PO SCH ×2 (08:42→22:38)
[2021-10-20] MEDS: EMOLLIENT COMBINATION NO.73 78 GM CREAM..G. TP SCH (09:20)
--- NOTE | 2021-10-20 11:47 | NUR ---
Machine Operator Farmworker VALVE INSPECTOR spoke to door frame builder Artem today who stated will call sister Alycia. RN stated sisterAlycia was the [facility] [phone]. VALVE INSPECTOR called to speak to Alycia who stated she did have a chance to speak to a and did not know who she spoke to. This will call her in the morning to see if she has made a decision as to begin providing comfort measures only for this patient. SisterAlycia stated she feels all the info shared was still vague. VALVE INSPECTOR transferred her to speak to the PHOTOVOLTAIC TESTING TECHNICIAN Artem to gather more info. VALVE INSPECTOR will remain available as needed.
[2021-10-20] MEDS: AMMONIUM LACTATE 226 GM LOTION TP SCH (22:31)
[2021-10-21] VITALS (28 sets, daily range): BP systolic 105–157
[2021-10-21] MEDS: PIPERACILLIN/TAZO 3.375/DEX-IS 50 ML IV SCH ×4 (01:07→17:37)
[2021-10-21] MEDS: IPRATROPIUM/ALBUTEROL SULFATE 3 ML AMPUL.NEB (DUONEB) INH SCH ×6 (01:50→22:20)
[2021-10-21] MEDS: PROPOFOL DRIP 100 ML IV PRN ×6 (04:23→22:54)
[2021-10-21] MEDS: KCL 40 mEq in D5W 1000 mL 1,000 ML IV SCH ×2 (04:30→10:34)
[2021-10-21 05:56] LABS: BASOPHILS # (AUTO) 0.1 K/uL (0.0-0.2); BASOPHILS % (AUTO) 0.8 % (0.0-2.0); EOSINOPHILS # (AUTO) 0.3 K/uL (0.0-0.4); EOSINOPHILS % (AUTO) 2.3 % (0.0-4.0); HEMATOCRIT 34.6 % (36-54); HEMOGLOBIN 11.2 g/dL (14.0-18.0); LYMPHOCYTES # (AUTO) 0.8 K/uL (1.0-5.5); MEAN CORPUSCULAR HEMOGLOBIN 31 pg (27-31); MEAN CORPUSCULAR HGB CONC 32 % (32-36); MEAN CORPUSCULAR VOLUME 95 fL (79.0-98.0); MONOCYTES # (AUTO) 0.6 K/uL (0.0-1.0); MONOCYTES % (AUTO) 5.2 % (1.7-9.3); NEUTROPHILS # (AUTO) 9.9 K/uL (1.8-7.7); NEUTROPHILS % (AUTO) 84.7 % (40.0-70.0); PLATELET COUNT (AUTO) 179 K/uL (130-430); RED BLOOD CELL COUNT(AUTO) 3.64 MIL/uL (4.2-6.2); RED CELL DISTRIBUTION WIDTH 15.5 % (9.0-15.0); WHITE BLOOD COUNT (AUTO) 11.6 K/uL (4.8-10.8)
[2021-10-21 06:05] LABS: CREATININE 1.57 mg/dL (0.55-1.30); POTASSIUM 3.7 mmol/L (3.5-5.1)
[2021-10-21 07:18] LABS: CALCIUM 7.1 mg/dL (8.4-11.0)
[2021-10-21] MEDS: EMOLLIENT COMBINATION NO.73 78 GM CREAM..G. TP SCH (07:33)
[2021-10-21] MEDS: BALSAM PERU/CASTOR OIL 56.7 GM OINT...G. TP SCH (07:33)
--- NOTE | 2021-10-21 08:00 | NUR ---
CARMEN BROWN REGISTERED NURSE IS IN CHARGE OF THIS PT/PT PLACED ON CPAP NOW, NO NGT IN PLACE DUE TO PATIENT REQUEST//MW
--- NOTE | 2021-10-21 08:19 | NUR ---
0725 titrated o2 to .30, pt placed on cpap 5 ps 10. pt tolerating, rn aware will cont to monitor. Addendum: 10/21/21 at 0820 by Barbara Gomez RT Amended: Links added.
--- NOTE | 2021-10-21 09:38 | NUR ---
BACK TO CPAP/PT C/O SOB//BELLY BREATHING PRESENNT//PT IN SOME RESP DISTRESS//MW
[2021-10-21] MEDS: FUROSEMIDE 40 MG/4 ML VIAL IVP SCH ×2 (09:39→22:02)
[2021-10-21] MEDS: FAMOTIDINE PF 20 MG/2 ML VIAL IVP SCH (09:39)
[2021-10-21] MEDS: ENOXAPARIN SODIUM 80 MG/0.8 ML SYRINGE SUBCUT SCH ×2 (09:40→22:00)
[2021-10-21] MEDS: POTASSIUM CHLORIDE 20 MEQ TAB.PRT.SR PO SCH ×2 (09:41→21:58)
--- NOTE | 2021-10-21 10:44 | NUR ---
0755 pt placed back to ac due to tachypnea.will cont to monitor. Addendum: 10/21/21 at 1045 by Barbara Gomez RT Amended: Links added.
--- NOTE | 2021-10-21 11:17 | NUR ---
Nutritional F/U Admitting Diagnosis Acute Heart Failure, Supraventricular Tachycardia Reviewed Pertinent Medical/Surgical Hx Medical Record Primary RN Medical History Comment: PMH: Schizophrenia, depression, per physician notes Per physician notes 10/21: pt continues w/ acute respiratory failure, sepsis, septic shock, metabolic acidosis, respiratory acidosis, cellulitis, acute on chronic CHF, SVT, DIANE, hyperkalemia, and transaminitis TB (QFT) Gold In Tube: Negative 10/08 SARS-CoV-2 Ag (Rapid) Negative 10/07 Subjective Information: RD attended ICU rounds this morning. Primary RN and student nurse reported that pt was undergoing CPAP trial today, no route available for nutrition support at this time, state that pt is on a low dose of sedation -- plan to insert NGT if pt agrees, as pt is somewhat awake/follows commands. Per EMR review, pt self-extubated 10/16, then re-intubated 10/19; no nutrition support since 10/17; PO intake of 25% when pt was placed on PO diet (pureed) x1 day; Hakan scale: 10 -- 10/15 Patternmaker Pl[employer] note revealed 1. Right Buttock: Stage III pressure ulcer, present on admission. 2. Right Buttock, medial to site 1: Area of dark discoloration, possible sDTI, present on admission. 3. Left Buttock: Stage II pressure ulcer, present on admission. 4. Left Lateral Hip: Unstageable pressure ulcer, present on admission. 5. Left Lateral Ankle: Unstageable pressure ulcer, present on admission. 6. Left Proximal Posterior Calf: Unstageable pressure ulcer, present on admission. 7. Left Posterior Calf, inferior to site 6: Unstageable pressure ulcer, present on admission. 8. Left Dorsal Medial Foot: Unstageable pressure ulcer, present on admission. 9. Right Mid Lateral Thigh: Healed wound, present on admission. 10. Right Mid Posterior Calf: Multiple scattered open areas, present on admission; pt has 3+ pitting edema to BLE and BUE. Pt is not yet meeting optimal nutritional needs, but is receiving calories from dextrose (KCl/D5%W) and lipids (propofol infusion) -- ~1236 kcal/day. Current Diet Order/Nutrition Support: NPO x1 day Patient/Significant Other Unable To Verbalize Education Provided Not Indicated Pertinent Medications: pepcid, lopressor, levophed, lovenox, lactic acid, KCl/D5%W at 100 ml/hr (408 kcals/day), propofol at 31.374 ml/hr (828 kcal/day) Pertinent Labs: WBC 11.6H, Na 146 H, K 3.7 WNL, Cl 112 H, BUN 28 H, CRE 1.57 H, Ca 7.1 L Height (Feet) 6 feet Height (Inches) 2.00 inches Weight (Pounds) 350 pounds -- NEW WT: (10/18) 329# 6oz/149.4 kg -- 30# wt loss possibly d/t fluid loss a/w Lasix therapy, gradual wt loss appropriate d/t morbid obesity. Patient Weight 158.757 kg Body Mass Index 44.93 kg/m2- NEW BMI 42.3 kg/m2 %IBW 184 Kelly/Adjusted Body Weight 190#/86.4 kg Recent Weight Change unable to verify Weight Status Morbidly Obese Usual Diet At Home unable to verify NEW Estimated Energy Expenditure (kcals/day) 2594 (Modified [employer] 2009 d/t critical illness; Ve: 13.2, Tmax: 37.2'C) Estimated Protein Required (g/day) 86-104 (1-1.2 g/kg IBW d/t obesity, DIANE vs sepsis and wounds) Estimated Fluid Required (l/day) Per MD d/t DIANE Problem/Etiology/Signs/Symptoms Inadequate EN support R/T metabolic demands AEB estimated nutritional requirements for sepsis and wound healing. *Resume, pt NPO, no nutrition support Increased nutritional needs R/T physiological demands AEB estimated nutritional requirements for wound healing and sepsis. *Ongoing Expected Outcomes/Goals - Monitor tolerance of EN/oral intake w/ goal of pt meeting greater than 80% of estimated needs, labs trending WNL, normal GI function, skin integrity, wt maintenance. Dietitian Recommendations * Recommend Jevity 1.5 at 65 ml/hr (goal rate), Yeison BID, Free Water Flush: per physician d/t ARF per MD Provides: 2500 kcal/day, 105 gm protein/day, and 1186 ml free water/day Meets: 96% of estimated caloric needs and 101% of upper end of estimated protein needs * Consider D/C KCl/D5%W at 100 ml/hr if/when EN support resumes Follow Up High Risk: F/U in 2-3 days
--- NOTE | 2021-10-21 11:32 | NUR ---
Dietitian Recommendations * Recommend Jevity 1.5 at 65 ml/hr (goal rate), Yeison BID, Free Water Flush: per physician d/t ARF per MD Provides: 2500 kcal/day, 105 gm protein/day, and 1186 ml free water/day Meets: 96% of estimated caloric needs and 101% of upper end of estimated protein needs * Consider D/C KCl/D5%W at 100 ml/hr if/when EN support resumes LP, RD Please refer to Nutrition F/U for details.
[2021-10-21] MEDS: DAPTOmycin 900 MG in NS 50 ML IV SCH (14:00)
--- NOTE | 2021-10-21 15:30 | NUR ---
1530-ALL DRESSINGS CHANGHED ORDERED/TOLERATED BADLY, NEEDED INCREASED FIO2 DURING AND AFTER PROCEDURES/LEAVING FI02 AT 4O% POST PROCEDURE//MW
--- NOTE | 2021-10-21 18:17 | NUR ---
TF JEVITY STATRETED ORDERED/GOAL RATE 65CC/H//MW
--- NOTE | 2021-10-21 19:30 | NUR ---
RECEIVED REPORT ON PATIENT FROM ED MORALES, ASSUMED CARE, AND STARTED ASSESSMENT
[2021-10-21] MEDS: AMMONIUM LACTATE 226 GM LOTION TP SCH (21:00)
[2021-10-22] VITALS (34 sets, daily range): BP systolic 107–145
[2021-10-22] MEDS: IPRATROPIUM/ALBUTEROL SULFATE 3 ML AMPUL.NEB (DUONEB) INH SCH ×7 (00:26→22:59)
[2021-10-22] MEDS: KCL 40 mEq in D5W 1000 mL 1,000 ML IV SCH ×2 (00:30→20:59)
[2021-10-22] MEDS: PIPERACILLIN/TAZO 3.375/DEX-IS 50 ML IV SCH ×4 (00:33→18:06)
--- NOTE | 2021-10-22 04:00 | NUR ---
COMPLETE BED BATH AND COMPLETE LINEN CHANGE GIVEN.
[2021-10-22 06:11] LABS: BASOPHILS # (AUTO) 0.1 K/uL (0.0-0.2); BASOPHILS % (AUTO) 0.7 % (0.0-2.0); EOSINOPHILS # (AUTO) 0.2 K/uL (0.0-0.4); EOSINOPHILS % (AUTO) 1.9 % (0.0-4.0); HEMATOCRIT 33.8 % (36-54); HEMOGLOBIN 10.9 g/dL (14.0-18.0); LYMPHOCYTES # (AUTO) 1.1 K/uL (1.0-5.5); LYMPHOCYTES % (AUTO) 8.7 % (20.5-51.5); MEAN CORPUSCULAR HEMOGLOBIN 30 pg (27-31); MEAN CORPUSCULAR HGB CONC 32 % (32-36); MEAN CORPUSCULAR VOLUME 94 fL (79.0-98.0); MONOCYTES # (AUTO) 0.7 K/uL (0.0-1.0); MONOCYTES % (AUTO) 5.6 % (1.7-9.3); NEUTROPHILS # (AUTO) 10.6 K/uL (1.8-7.7); NEUTROPHILS % (AUTO) 83.1 % (40.0-70.0); PLATELET COUNT (AUTO) 179 K/uL (130-430); RED CELL DISTRIBUTION WIDTH 15.2 % (9.0-15.0); WHITE BLOOD COUNT (AUTO) 12.7 K/uL (4.8-10.8)
[2021-10-22] MEDS: PROPOFOL DRIP 100 ML IV PRN ×2 (06:11→22:16)
[2021-10-22 06:29] LABS: CREATININE 1.42 mg/dL (0.55-1.30); POTASSIUM 3.6 mmol/L (3.5-5.1)
--- NOTE | 2021-10-22 07:31 | NUR ---
REPORT GIVEN TO ED PRINGLE, AND CARE WAS TURNED OVER TO HIM.
[2021-10-22 07:48] LABS: CALCIUM 6.8 mg/dL (8.4-11.0)
--- NOTE | 2021-10-22 08:26 | NUR ---
REQUESTED LEVOPHED FROM PHARMACY, THEY SAID IT WAS NOT POSSIBLE FOR THEM TO MAKE MORE BECAUSE THEY DIDNT HAVE STAFF AND THAT i SHOULD MIX IT AT BEDSIDE
[2021-10-22] MEDS: FAMOTIDINE PF 20 MG/2 ML VIAL IVP SCH (09:02)
[2021-10-22] MEDS: POTASSIUM CHLORIDE 20 MEQ TAB.PRT.SR PO SCH (09:03)
[2021-10-22] MEDS: FUROSEMIDE 40 MG/4 ML VIAL IVP SCH ×2 (09:03→22:20)
[2021-10-22] MEDS: BALSAM PERU/CASTOR OIL 56.7 GM OINT...G. TP SCH (09:05)
[2021-10-22] MEDS: ENOXAPARIN SODIUM 80 MG/0.8 ML SYRINGE SUBCUT SCH ×2 (09:05→22:14)
[2021-10-22] MEDS: EMOLLIENT COMBINATION NO.73 78 GM CREAM..G. TP SCH (09:07)
--- NOTE | 2021-10-22 10:03 | NUR ---
RT NOTES Per Dr Montes's order, vent to cpap 5 ps 10, tachypnea did not worse. Will monitor pt. will draw ABG. RN to notify RT for change in condition.
--- NOTE | 2021-10-22 11:25 | NUR ---
RT NOTES Pt appears fatigued, vent back to AC. RN made aware.
[2021-10-22] MEDS: DAPTOmycin 900 MG in NS 50 ML IV SCH (14:56)
--- NOTE | 2021-10-22 19:25 | NUR ---
Assumed pt care bedside report received from Nikolas WARD pt skin checked complete CHG, bed bath done with wound care. As at this time pt awake alert follows command moves all extremities ongoing Propofol drip @10mcg/kg/min, Sinus rhythm, tachycardia vitals signs stable afebrile , OGT clamped no feeding, granados to gravity, and oral care done and suction via ETT. ETT to ventilator tolerating well on A/C mode rate 18, TV 450, PEEP 5 FIO2 30% O2 SAT 100% no sign of shortness of breadth noted.
--- NOTE | 2021-10-22 20:30 | NUR ---
PT's sister called Yari updates given over the phone concerning pt's condition updates ongoing treatments and pt's response with vitals signs
[2021-10-22] MEDS: AMMONIUM LACTATE 226 GM LOTION TP SCH (20:59)
[2021-10-22] MEDS: POTASSIUM CHLORIDE 20 MEQ/PKT PACKET PO SCH (22:20)
--- NOTE | 2021-10-22 23:30 | NUR ---
PT pulled out OGT reinserted new NGT via right nares auscultation and chest xray done to verify placement awaiting report from outside STAT RAD.
[2021-10-23] VITALS (36 sets, daily range): BP systolic 106–148
[2021-10-23] MEDS: PIPERACILLIN/TAZO 3.375/DEX-IS 50 ML IV SCH ×4 (00:24→18:23)
[2021-10-23] MEDS: PROPOFOL DRIP 100 ML IV PRN ×5 (02:32→22:46)
[2021-10-23] MEDS: IPRATROPIUM/ALBUTEROL SULFATE 3 ML AMPUL.NEB (DUONEB) INH SCH ×6 (03:34→23:19)
[2021-10-23] MEDS: KCL 40 mEq in D5W 1000 mL 1,000 ML IV SCH ×2 (06:12→16:37)
[2021-10-23 06:20] LABS: BASOPHILS # (AUTO) 0.1 K/uL (0.0-0.2); BASOPHILS % (AUTO) 1.2 % (0.0-2.0); EOSINOPHILS # (AUTO) 0.2 K/uL (0.0-0.4); EOSINOPHILS % (AUTO) 1.7 % (0.0-4.0); HEMATOCRIT 31.5 % (36-54); HEMOGLOBIN 10.3 g/dL (14.0-18.0); LYMPHOCYTES # (AUTO) 0.6 K/uL (1.0-5.5); LYMPHOCYTES % (AUTO) 5.4 % (20.5-51.5); MEAN CORPUSCULAR HEMOGLOBIN 31 pg (27-31); MEAN CORPUSCULAR HGB CONC 33 % (32-36); MEAN CORPUSCULAR VOLUME 94 fL (79.0-98.0); MONOCYTES # (AUTO) 0.5 K/uL (0.0-1.0); MONOCYTES % (AUTO) 4.7 % (1.7-9.3); NEUTROPHILS # (AUTO) 9.7 K/uL (1.8-7.7); PLATELET COUNT (AUTO) 177 K/uL (130-430); RED BLOOD CELL COUNT(AUTO) 3.37 MIL/uL (4.2-6.2); WHITE BLOOD COUNT (AUTO) 11.1 K/uL (4.8-10.8)
[2021-10-23 06:51] LABS: ALBUMIN 1.5 g/dL (3.4-4.8); CREATININE 1.33 mg/dL (0.55-1.30); POTASSIUM 3.8 mmol/L (3.5-5.1); TOTAL BILIRUBIN 0.9 mg/dL (0.0-1.0)
--- NOTE | 2021-10-23 07:14 | NUR ---
Change of shift report given to SHYAM WARD updates at the bedside vitals signs stable no changes in care plan and pt's condition.
--- NOTE | 2021-10-23 07:49 | NUR ---
RT NOTES Daily SBT was coordinated with RN, vent to CPAP 5 PS 10. Will monitor pt.
[2021-10-23] MEDS: FAMOTIDINE PF 20 MG/2 ML VIAL IVP SCH (08:18)
[2021-10-23] MEDS: POTASSIUM CHLORIDE 20 MEQ/PKT PACKET PO SCH ×2 (08:19→21:28)
[2021-10-23] MEDS: FUROSEMIDE 40 MG/4 ML VIAL IVP SCH ×2 (08:19→21:28)
[2021-10-23] MEDS: ENOXAPARIN SODIUM 80 MG/0.8 ML SYRINGE SUBCUT SCH ×2 (08:23→21:27)
[2021-10-23 08:50] LABS: CALCIUM 6.8 mg/dL (8.4-11.0)
[2021-10-23] MEDS: BALSAM PERU/CASTOR OIL 56.7 GM OINT...G. TP SCH (09:22)
[2021-10-23] MEDS: EMOLLIENT COMBINATION NO.73 78 GM CREAM..G. TP SCH (09:23)
--- NOTE | 2021-10-23 09:30 | NUR ---
MD MUHAMMAD BEDSIDE, TO ORDER H20 FLUSHES AND NGT FEEDING. TO FOR OSCAL 500 BID VIA NGT.
[2021-10-23] MEDS ORDERED: CALCIUM 500 MG/TAB PO ONE (09:45)
--- NOTE | 2021-10-23 09:45 | NUR ---
RT NOTES Vent back to AC per Dr Montes's order. 2 hours of CPAP daily. Possible extubation tomorrow if less secretions.
--- NOTE | 2021-10-23 12:30 | NUR ---
FOLLOWED UP WITH MD MUHAMMAD VIA PHONE ABOUT NGT FEEDING AND WATER FLUSHES. MD MUHAMMAD STATED "HAVENT REVIEWED CHART YET, WILL ENTER ORDERS SOON."
[2021-10-23] MEDS: DAPTOmycin 900 MG in NS 50 ML IV SCH (13:50)
--- NOTE | 2021-10-23 15:34 | NUR ---
SPOKE TO MD ARNOLD TO CLARIFY IF OK WITH DECISION BY TJ TO DOWNGRADE TO TELEMETRY UNIT, "OK WITH OCCASSIONAL V-TACH RUNS DOBUTAMINE LEAVES SYSTEM".
--- NOTE | 2021-10-23 19:04 | NUR ---
CARE ENDORSED TO ED YIN. SBAR PROVIDED BEDSIDE. PT VSS. NAD NOTED. PROPOFOL AT 30MCG/KG/MIN. IVF SAME RATE, 70CC/HR. END OF CARE.
--- NOTE | 2021-10-23 19:17 | NUR ---
Bedside report received from SHYAM WARD met pt awake alert still intubated but follows command generalized weakness but able to move all extremities, as at this time no sedation, Oxygenation via ETT a/c 18 TV 450 FIO2 30% PEEP 5 no sign of distress noted, SR on tele HR 90 vitals signs stable, skin checked multiple skin injury, pressure sores also present on admission both legs cellulitis, sacral/ buttocks vast area of open wound, WOUND NURSE aware, left calf, left hip both feet and heels. Complete bed bath with CHG, granados, oral care suctioned , NGT CLAMPED no feeding, granados to gravity skin care and repositioned for comfort. As at this time will continue to monitor and treat as per care plan.
[2021-10-23] MEDS: HYDROcodone/ACETAMIN 5-325 MG TAB (NORCO/ VICODIN) PO PRN (21:29)
[2021-10-23] MEDS: CALCIUM 500 MG/TAB PO SCH (21:29)
[2021-10-23] MEDS: AMMONIUM LACTATE 226 GM LOTION TP SCH (21:30)
[2021-10-24] VITALS (27 sets, daily range): BP systolic 109–143
[2021-10-24] MEDS: PIPERACILLIN/TAZO 3.375/DEX-IS 50 ML IV SCH ×5 (00:31→23:44)
[2021-10-24] MEDS: KCL 40 mEq in D5W 1000 mL 1,000 ML IV SCH ×2 (02:50→12:34)
[2021-10-24] MEDS: PROPOFOL DRIP 100 ML IV PRN ×2 (02:52→07:09)
[2021-10-24 06:33] LABS: BASOPHILS # (AUTO) 0.1 K/uL (0.0-0.2); BASOPHILS % (AUTO) 0.7 % (0.0-2.0); EOSINOPHILS # (AUTO) 0.3 K/uL (0.0-0.4); EOSINOPHILS % (AUTO) 2.8 % (0.0-4.0); HEMATOCRIT 28.4 % (36-54); HEMOGLOBIN 9.5 g/dL (14.0-18.0); LYMPHOCYTES % (AUTO) 11.1 % (20.5-51.5); MEAN CORPUSCULAR HEMOGLOBIN 31 pg (27-31); MEAN CORPUSCULAR HGB CONC 33 % (32-36); MEAN CORPUSCULAR VOLUME 93 fL (79.0-98.0); MONOCYTES # (AUTO) 0.7 K/uL (0.0-1.0); MONOCYTES % (AUTO) 7.4 % (1.7-9.3); NEUTROPHILS # (AUTO) 7.2 K/uL (1.8-7.7); PLATELET COUNT (AUTO) 189 K/uL (130-430); RED BLOOD CELL COUNT(AUTO) 3.06 MIL/uL (4.2-6.2); RED CELL DISTRIBUTION WIDTH 14.8 % (9.0-15.0); WHITE BLOOD COUNT (AUTO) 9.3 K/uL (4.8-10.8)
[2021-10-24 06:46] LABS: CREATININE 1.27 mg/dL (0.55-1.30); POTASSIUM 3.9 mmol/L (3.5-5.1)
--- NOTE | 2021-10-24 07:15 | NUR ---
RECEIVED PT FROM ED YIN ASSUMED CARE, PT IS AAOX3-4, CAN FOLLOW COMMANDS. PERRL, PUPILS 4MM SLUGGISH BILATERALLY. ETT IN PLACE, INTACT, SECURED, TO VENT SETTINGS AC VC RR 18, TV 450, FIO2 30%, PEEP 5. NGT IN PLACE TO R NARE, CLAMPED. RESP E/U. LUNG SOUNDS CTA.. ABDOMEN ROUND, OBESE, SOFT, NONTENDER, NONDISTENDED. PRIOR NURSE REPORTS PT HAS NO HAD BM FOR SEVERAL DAYS, WILL MEDICATE PER JUN. BOWEL SOUNDS ACTIVE X4 QUADS. NY CATH IN PLACE, PATENT, DRAINING DARK YELLOW URINE TO GRAVITY, SECURED. DISTAL PULSES NORMAL, SKIN WARM, CAP REFILL < 3 SECS. BUE 3 EDEMA, BLE TRACE EDEMA. PT HAS MULTIPLE WOUNDS, ON AIR MATRESS, HEELS FLOATED. GAURI PICC LINE 2 LUMENS PATENT WITH PROPOFOL RUNNING AT 25MCG/KG/MIN AND KCL 40 MEQ WITH D5W AT 100ML/HOUR. SITE WNL, DRESSING CDI. ASPIRATION PRECAUTIONS IN PLACE.
--- NOTE | 2021-10-24 07:20 | NUR ---
Bedside report given to Trixie WARD for continuity of care as at this time pt vitals signs stable afebrile no changes in care plan and condition. Addendum: 10/24/21 at 0743 by Dorothea Hatch RN Spoke to Dr Freire about pt's nutrition and said he will put in orders.
[2021-10-24] MEDS: IPRATROPIUM/ALBUTEROL SULFATE 3 ML AMPUL.NEB (DUONEB) INH SCH ×4 (07:30→19:57)
--- NOTE | 2021-10-24 07:40 | NUR ---
DR. MUHAMMAD IN ROOM TO ASSESS PT, STATED HE WILL START PT ON T/F TODAY.
--- NOTE | 2021-10-24 07:47 | NUR ---
RT NOTES SBT was coordinated with RN. Vent to CPAP 5 PS 10. No adverse reactions noted. Will monitor pt.
--- NOTE | 2021-10-24 07:47 | NUR ---
PT PLACED ON SEDATION VACATION AT THIS TIME, PROPOFOL TURNED OFF, PT ORIENTED TO TREATMENT, CPAP INITIATED AT 5, PS 10, FIO2 305. RESP E/U. O2 SAT AT 98%, RR 32.
[2021-10-24] MEDS: FUROSEMIDE 40 MG/4 ML VIAL IVP SCH ×2 (09:08→20:16)
[2021-10-24] MEDS: FAMOTIDINE PF 20 MG/2 ML VIAL IVP SCH (09:08)
[2021-10-24] MEDS: MENTHOL/ZINC OXIDE 113 GM OINT. TP PRN (09:09)
[2021-10-24] MEDS: POTASSIUM CHLORIDE 20 MEQ/PKT PACKET PO SCH ×2 (09:09→20:17)
[2021-10-24] MEDS: CALCIUM 500 MG/TAB PO SCH ×3 (09:09→20:16)
[2021-10-24] MEDS: ENOXAPARIN SODIUM 80 MG/0.8 ML SYRINGE SUBCUT SCH ×2 (09:10→20:19)
[2021-10-24] MEDS: BALSAM PERU/CASTOR OIL 56.7 GM OINT...G. TP SCH (09:12)
[2021-10-24] MEDS: EMOLLIENT COMBINATION NO.73 78 GM CREAM..G. TP SCH (09:12)
[2021-10-24 09:53] LABS: CALCIUM 6.8 mg/dL (8.4-11.0)
--- NOTE | 2021-10-24 10:15 | NUR ---
RT NOTES WEANING PARAMETERS: NIF -21 VC 422 RSBI 18 Pt. is completely awake/alert, followed instructions well.
--- NOTE | 2021-10-24 11:00 | NUR ---
REPORTED TO DR. SHARP PT'S ABG RESULTS, RECEIVED ORDER TO EXTUBATE. PRECEDEX PRN.
--- NOTE | 2021-10-24 11:30 | NUR ---
RT NOTES Per Dr Montes's order, pt was extubated and placed on 3L NC. No immediate adverse reactions noted. Pt. was sxn both via ET tube and orally before cuff deflation. @1140 Sat 96% RR 18 HR 108 No distress noted.
--- NOTE | 2021-10-24 11:30 | NUR ---
PT EXTUBATED AT THIS TIME. PLACED ON 3LPM NC. NONPRODUCTIVE COUGH NOTED. RR 20, O2 SAT 98%, HR 110.
[2021-10-24] MEDS ORDERED: CALCIUM 500 MG/TAB PO ONE (12:45)
--- NOTE | 2021-10-24 13:06 | NUR ---
RECEIVED ORDER FROM DR. MUHAMMAD, DECREASE KCL 40MEQ D5W TO 50ML/HOUR. ORDER CARRIED OUT.
[2021-10-24] MEDS: DAPTOmycin 900 MG in NS 50 ML IV SCH (14:00)
--- NOTE | 2021-10-24 16:35 | NUR ---
Nutrition F/U Admitting Diagnosis Acute Heart Failure, Supraventricular Tachycardia Reviewed Pertinent Medical/Surgical Hx Medical Record Primary RN Medical History Comment: PMH: Schizophrenia, depression, per physician notes Per physician notes 10/21: pt continues w/ acute respiratory failure, sepsis, septic shock, metabolic acidosis, respiratory acidosis, cellulitis, acute on chronic CHF, SVT, DIANE, hyperkalemia, and transaminitis TB (QFT) Gold In Tube: Negative 10/08 SARS-CoV-2 Ag (Rapid) Negative 10/07 10/15 Drug Counselor note revealed 1. Right Buttock: Stage III pressure ulcer, present on admission. 2. Right Buttock, medial to site 1: Area of dark discoloration, possible sDTI, present on admission. 3. Left Buttock: Stage II pressure ulcer, present on admission. 4. Left Lateral Hip: Unstageable pressure ulcer, present on admission. 5. Left Lateral Ankle: Unstageable pressure ulcer, present on admission. 6. Left Proximal Posterior Calf: Unstageable pressure ulcer, present on admission. 7. Left Posterior Calf, inferior to site 6: Unstageable pressure ulcer, present on admission. 8. Left Dorsal Medial Foot: Unstageable pressure ulcer, present on admission. 9. Right Mid Lateral Thigh: Healed wound, present on admission. 10. Right Mid Posterior Calf: Multiple scattered open areas, present on admission; pt has 3+ pitting edema to BLE and BUE. Subjective Information: RD rounded to ICU this afternoon. Primary RN reported that pt will start TF via NGT today and pending ST swallow eval tomorrow. Per EMR review, pt self-extubated 10/16, then re-intubated 10/19, and extubated again today; no nutrition support since 10/17; abd is soft w/ active bowel sounds; LBM x1 10/18; Hakan scale: 11 -- please refer to Drug Counselor note for details. Pt is not meeting optimal nutritional needs. Current Diet Order/Nutrition Support: Glucerna 1.5 at 10 ml/hr, Free Water Flush: 100ML Q6h via NGT x0 days Patient/Significant Other Unable To Verbalize Education Provided Not Indicated Pertinent Medications: KCl packet, piperacillin/tazobactam, lasix, pepcid, lopressor, levophed, lovenox, KCl/D5%W at 100 ml/hr (408 kcals/day), Pertinent Labs: WBC 9.3 WNL, Na 141 WNL, Cl 107 WNL, BUN 18 WNL, CRE 1.27 WNL, Ca 6.8 L Height (Feet) 6 feet Height (Inches) 2.00 inches Weight (Pounds) 350 pounds -- NEW WT: (10/18) 329# 6oz/149.4 kg -- 30# wt loss possibly d/t fluid loss a/w Lasix therapy, gradual wt loss appropriate d/t morbid obesity. Patient Weight 158.757 kg Body Mass Index 44.93 kg/m2- NEW BMI 42.3 kg/m2 %IBW 184 [place]/Adjusted Body Weight 190#/86.4 kg Recent Weight Change unable to verify Weight Status Morbidly Obese Usual Diet At Home unable to verify NEW Estimated Energy Expenditure (kcals/day) 5813-5194 (30-35 kcal/kg IBW d/t morbid obesity, sepsis, wounds) NEW Estimated Protein Required (g/day) 86-130 (1-1.5 g/kg IBW d/t obesity, renal labs improving, sepsis, and wounds) Estimated Fluid Required (l/day) Per MD d/t DIANE Problem/Etiology/Signs/Symptoms Inadequate EN support R/T metabolic demands AEB estimated nutritional requirements for sepsis and wound healing. *TF not yet infusing Increased nutritional needs R/T physiological demands AEB estimated nutritional requirements for wound healing and sepsis. *Ongoing Expected Outcomes/Goals - Monitor tolerance of EN/oral intake w/ goal of pt meeting greater than 80% of estimated needs, labs trending WNL, normal GI function, skin integrity, wt maintenance. Dietitian Recommendations * Glucerna 1.5 at 65 ml/hr (goal rate), Yeison BID, Free Water Flush: per physician d/t ARF per MD Provides: 2500 kcal/day, 134 gm protein/day, and 1184 ml free water/day Meets: 96% of estimated caloric needs and 103% of upper end of estimated protein needs * Consider D/C KCl/D5%W at 100 ml/hr once pt reaches goal TF rate Follow Up High Risk: F/U in 2-3 days Addendum: 10/24/21 at [address] RD spoke w/ Dr. Cruz via phone call who was agreeable w/ adding Yeison BID and increasing pt's TF to RD rec of Glucerna 1.5 at 65 ml/hr. He stated to have RN gradually increase to goal, and continue w/ current water flush order of 100 ml Q6h.
--- NOTE | 2021-10-24 16:41 | NUR ---
Dietitian Recommendations * Glucerna 1.5 at 65 ml/hr (goal rate), Yeison BID, Free Water Flush: per physician d/t ARF per MD Provides: 2500 kcal/day, 134 gm protein/day, and 1184 ml free water/day Meets: 96% of estimated caloric needs and 103% of upper end of estimated protein needs * Consider D/C KCl/D5%W at 100 ml/hr once pt reaches goal TF rate LP, RD Please refer to Nutrition F/U for details.
--- NOTE | 2021-10-24 18:21 | NUR ---
CALLED FOR SWALLOW ARON DIALED: [phone] SPOKE TO: LEFT VOICEMAIL
--- NOTE | 2021-10-24 19:42 | NUR ---
ENDORSED ALL CARE TO ED HILLMAN. ALL QUESTIONS AND CONCERNS ADDRESSED.
[2021-10-24] MEDS: AMMONIUM LACTATE 226 GM LOTION TP SCH (20:17)
[2021-10-25] VITALS (21 sets, daily range): BP systolic 123–149
[2021-10-25] MEDS: IPRATROPIUM/ALBUTEROL SULFATE 3 ML AMPUL.NEB (DUONEB) INH SCH ×6 (00:15→23:27)
[2021-10-25] MEDS: PIPERACILLIN/TAZO 3.375/DEX-IS 50 ML IV SCH ×3 (05:41→17:56)
[2021-10-25 06:07] LABS: BASOPHILS # (AUTO) 0.1 K/uL (0.0-0.2); BASOPHILS % (AUTO) 0.9 % (0.0-2.0); EOSINOPHILS # (AUTO) 0.1 K/uL (0.0-0.4); EOSINOPHILS % (AUTO) 1.6 % (0.0-4.0); HEMATOCRIT 32.1 % (36-54); HEMOGLOBIN 10.9 g/dL (14.0-18.0); LYMPHOCYTES # (AUTO) 0.9 K/uL (1.0-5.5); MEAN CORPUSCULAR HEMOGLOBIN 31 pg (27-31); MEAN CORPUSCULAR HGB CONC 34 % (32-36); MEAN CORPUSCULAR VOLUME 92 fL (79.0-98.0); MONOCYTES # (AUTO) 0.7 K/uL (0.0-1.0); MONOCYTES % (AUTO) 8.7 % (1.7-9.3); NEUTROPHILS # (AUTO) 6.5 K/uL (1.8-7.7); NEUTROPHILS % (AUTO) 77.8 % (40.0-70.0); PLATELET COUNT (AUTO) 219 K/uL (130-430); RED BLOOD CELL COUNT(AUTO) 3.51 MIL/uL (4.2-6.2); RED CELL DISTRIBUTION WIDTH 14.9 % (9.0-15.0); WHITE BLOOD COUNT (AUTO) 8.4 K/uL (4.8-10.8)
[2021-10-25 06:35] LABS: CALCIUM 7.3 mg/dL (8.4-11.0); CREATININE 1.27 mg/dL (0.55-1.30); POTASSIUM 3.5 mmol/L (3.5-5.1)
--- NOTE | 2021-10-25 07:30 | NUR ---
RECEIVED PT FROM NOC SHIFT, ASSUMED CARE.
--- NOTE | 2021-10-25 08:35 | NUR ---
FOLLOWED UP ON SWALLOW EVAL CALLED PT AND LEFT MESSAGE
--- NOTE | 2021-10-25 08:36 | NUR ---
REPORTED TO DR. SUAREZ PT HAS INCREASED EDEMA, BUE 3+, PT U/O 1999 LAST NIGHT, PT HAS COUGH BUT FEELS LIKE HE IS UNABLE TO MOVE SECRETIONS. RECEIVED ORDER FOR MUCINEX PRN ONCE ST SHARP COMPLETED, D/C IVF. ORDERS CARRIED OUT.
--- NOTE | 2021-10-25 09:00 | NUR ---
ST EVALUATION COMPLETED. ST TX NOT INDICATED AT THIS TIME. RECOMMEND PO DIET OF PUREE/NECTAR THICK LIQUIDS. 1:1 SUPERVISION AND FULL ASPIRATION PRECAUTIONS.
[2021-10-25] MEDS: FUROSEMIDE 40 MG/4 ML VIAL IVP SCH ×2 (09:41→22:06)
[2021-10-25] MEDS: FAMOTIDINE PF 20 MG/2 ML VIAL IVP SCH (09:41)
[2021-10-25] MEDS: POTASSIUM CHLORIDE 20 MEQ/PKT PACKET PO SCH ×2 (09:43→22:08)
[2021-10-25] MEDS: CALCIUM 500 MG/TAB PO SCH ×3 (09:43→22:07)
[2021-10-25] MEDS: ENOXAPARIN SODIUM 80 MG/0.8 ML SYRINGE SUBCUT SCH ×2 (09:46→22:07)
[2021-10-25] MEDS: BALSAM PERU/CASTOR OIL 56.7 GM OINT...G. TP SCH (09:47)
[2021-10-25] MEDS: EMOLLIENT COMBINATION NO.73 78 GM CREAM..G. TP SCH (09:49)
[2021-10-25] MEDS: DAPTOmycin 900 MG in NS 50 ML IV SCH (15:14)
[2021-10-25] MEDS ORDERED: guaiFENesin ER 600 MG TAB PO SCH (18:00)
[2021-10-25] MEDS ORDERED: guaiFENesin ER 600 MG TAB PO PRN (18:00)
--- NOTE | 2021-10-25 19:20 | NUR ---
Assumed pt care bedside report received from Trixie WARD. Met pt awake alert oriented ot self only follows command generalized weakness moves all extremities, vitals signs stable low grade fever 100.2 F orally. NGT still in place but no tube feeding had large bowel movement, granados to gravity will continue to mnitor and treat as per care plan.
--- NOTE | 2021-10-25 19:40 | NUR ---
RECEIVED PT FROM NOC SHIFT, ASSUMED CARE.
--- NOTE | 2021-10-25 19:40 | NUR ---
ENDORSED ALL CARE TO ED RINALDI.
--- NOTE | 2021-10-25 20:50 | NUR ---
Complete bed bath given, shaved oral, granados, skin and wound care donne Barrier, Venelex cream applied to the buttocks pressure sores unstageable/ necrotic wound pt tolerated well and repositioned for comfort.
[2021-10-25] MEDS: AMMONIUM LACTATE 226 GM LOTION TP SCH (22:05)
[2021-10-25] MEDS: HYDROcodone/ACETAMIN 5-325 MG TAB (NORCO/ VICODIN) PO PRN (22:08)
[2021-10-25] MEDS: MENTHOL/ZINC OXIDE 113 GM OINT. TP PRN (22:09)
[2021-10-26] VITALS (23 sets, daily range): BP systolic 118–152
[2021-10-26] MEDS: PIPERACILLIN/TAZO 3.375/DEX-IS 50 ML IV SCH (00:53)
[2021-10-26] MEDS: IPRATROPIUM/ALBUTEROL SULFATE 3 ML AMPUL.NEB (DUONEB) INH SCH ×6 (03:44→22:54)
[2021-10-26 06:04] LABS: BASOPHILS # (AUTO) 0.1 K/uL (0.0-0.2); BASOPHILS % (AUTO) 0.7 % (0.0-2.0); EOSINOPHILS # (AUTO) 0.2 K/uL (0.0-0.4); EOSINOPHILS % (AUTO) 2.2 % (0.0-4.0); HEMATOCRIT 31.5 % (36-54); HEMOGLOBIN 10.7 g/dL (14.0-18.0); LYMPHOCYTES # (AUTO) 1.1 K/uL (1.0-5.5); MEAN CORPUSCULAR HEMOGLOBIN 31 pg (27-31); MEAN CORPUSCULAR HGB CONC 34 % (32-36); MEAN CORPUSCULAR VOLUME 92 fL (79.0-98.0); MONOCYTES # (AUTO) 0.8 K/uL (0.0-1.0); MONOCYTES % (AUTO) 9.8 % (1.7-9.3); NEUTROPHILS # (AUTO) 6.1 K/uL (1.8-7.7); NEUTROPHILS % (AUTO) 74.3 % (40.0-70.0); PLATELET COUNT (AUTO) 243 K/uL (130-430); RED BLOOD CELL COUNT(AUTO) 3.45 MIL/uL (4.2-6.2); RED CELL DISTRIBUTION WIDTH 14.6 % (9.0-15.0); WHITE BLOOD COUNT (AUTO) 8.2 K/uL (4.8-10.8)
[2021-10-26 06:25] LABS: CALCIUM 8.1 mg/dL (8.4-11.0); CREATININE 1.14 mg/dL (0.55-1.30); POTASSIUM 3.5 mmol/L (3.5-5.1)
--- NOTE | 2021-10-26 07:15 | NUR ---
Change of shift report at bedside given to WYATT WARD pt awake alert no sign of distress vitals signs stable no changes in care plan and condition. Addendum: 10/26/21 at 0730 by Dorothea Hatch RN Report to JOSE C WARD
[2021-10-26] MEDS: FAMOTIDINE PF 20 MG/2 ML VIAL IVP SCH (08:24)
[2021-10-26] MEDS: FUROSEMIDE 40 MG/4 ML VIAL IVP SCH ×2 (08:25→21:00)
[2021-10-26] MEDS: CALCIUM 500 MG/TAB PO SCH ×3 (08:25→21:00)
[2021-10-26] MEDS: POTASSIUM CHLORIDE 20 MEQ/PKT PACKET PO SCH ×2 (08:26→21:00)
[2021-10-26] MEDS: ENOXAPARIN SODIUM 80 MG/0.8 ML SYRINGE SUBCUT SCH ×2 (08:29→21:00)
[2021-10-26] MEDS: BALSAM PERU/CASTOR OIL 56.7 GM OINT...G. TP SCH (08:31)
[2021-10-26] MEDS: EMOLLIENT COMBINATION NO.73 78 GM CREAM..G. TP SCH (10:57)
[2021-10-26] MEDS: DAPTOmycin 900 MG in NS 50 ML IV SCH (13:53)
[2021-10-26] MEDS: AMMONIUM LACTATE 226 GM LOTION TP SCH (21:00)
[2021-10-27] VITALS (17 sets, daily range): BP systolic 116–166
--- NOTE | 2021-10-27 01:06 | NUR ---
OBSERVED PATIENT WITH SINUS TACHYCARDIA BETWEEN 120 TO 130'S HEART RATE. BP 142/ 87 MM HG NONPHARMACOLOGICAL TECHNIQUE PROVIDED TO HELP DECREASE HEART RATE. PATIENT STAYS LYING IN BED. ALL NEEDS ADDRESSED. OBSERVED AGITATION & PROVIDED SAFETY & SECURITY. PAGED DR. EVANS. ABLE TO TALK TO DR. MUHAMMAD (ON-CALL) & OBTAINED ORDER FOR ATIVAN. ORDER NOTED & CARRIED OUT. WILL CONTINUE TO MONITOR THE PATIENT. -- LZI PAEZ RN
[2021-10-27] MEDS ORDERED: LORazepam 2 MG/ML VIAL IVP PRN (01:15)
[2021-10-27] MEDS: IPRATROPIUM/ALBUTEROL SULFATE 3 ML AMPUL.NEB (DUONEB) INH SCH ×6 (03:51→23:09)
[2021-10-27 05:53] LABS: BASOPHILS # (AUTO) 0.1 K/uL (0.0-0.2); BASOPHILS % (AUTO) 0.8 % (0.0-2.0); EOSINOPHILS # (AUTO) 0.2 K/uL (0.0-0.4); EOSINOPHILS % (AUTO) 3.1 % (0.0-4.0); HEMOGLOBIN 10.8 g/dL (14.0-18.0); LYMPHOCYTES # (AUTO) 1.1 K/uL (1.0-5.5); LYMPHOCYTES % (AUTO) 14.2 % (20.5-51.5); MEAN CORPUSCULAR HEMOGLOBIN 31 pg (27-31); MEAN CORPUSCULAR HGB CONC 34 % (32-36); MEAN CORPUSCULAR VOLUME 92 fL (79.0-98.0); MONOCYTES # (AUTO) 0.7 K/uL (0.0-1.0); MONOCYTES % (AUTO) 9.6 % (1.7-9.3); NEUTROPHILS # (AUTO) 5.6 K/uL (1.8-7.7); NEUTROPHILS % (AUTO) 72.3 % (40.0-70.0); PLATELET COUNT (AUTO) 289 K/uL (130-430); RED BLOOD CELL COUNT(AUTO) 3.47 MIL/uL (4.2-6.2); RED CELL DISTRIBUTION WIDTH 15.4 % (9.0-15.0); WHITE BLOOD COUNT (AUTO) 7.8 K/uL (4.8-10.8)
--- NOTE | 2021-10-27 06:00 | NUR ---
PT HAD 1800CC U/O VIA F/C AND LARGE DARK BRN SOFT STOOL. RAKESH WARD
[2021-10-27 06:22] LABS: CALCIUM 7.8 mg/dL (8.4-11.0); CREATININE 1.15 mg/dL (0.55-1.30); POTASSIUM 3.6 mmol/L (3.5-5.1)
[2021-10-27] MEDS: APIXABAN 2.5 MG TABLET PO SCH ×2 (10:40→21:41)
[2021-10-27] MEDS: FUROSEMIDE 40 MG TABLET PO SCH (10:41)
[2021-10-27] MEDS: METOPROLOL SUCCINATE 50 MG TAB.SR.24H (TOPROL XL) PO SCH (10:42)
[2021-10-27] MEDS: CALCIUM 500 MG/TAB PO SCH ×3 (10:42→21:37)
[2021-10-27] MEDS: POTASSIUM CHLORIDE 20 MEQ TAB.PRT.SR PO SCH (10:42)
[2021-10-27] MEDS: FAMOTIDINE PF 20 MG/2 ML VIAL IVP SCH (10:43)
[2021-10-27] MEDS: BALSAM PERU/CASTOR OIL 56.7 GM OINT...G. TP SCH (10:43)
[2021-10-27] MEDS: EMOLLIENT COMBINATION NO.73 78 GM CREAM..G. TP SCH (10:45)
[2021-10-27] MEDS ORDERED: ALTEPLASE 2 MG VIAL MC ONE (14:00)
--- NOTE | 2021-10-27 17:04 | NUR ---
Nutrition F/U Admitting Diagnosis Acute Heart Failure, Supraventricular Tachycardia Reviewed Pertinent Medical/Surgical Hx Medical Record Primary RN Medical History Comment: PMH: Schizophrenia, depression, per physician notes Per physician notes 10/26: pt seems to be improving, was extubated yesterday, septic shock resolved TB (QFT) Gold In Tube: Negative 10/08 SARS-CoV-2 Ag (Rapid) Negative 10/07 10/15 Pharmacy Billing Adjudicator note revealed 1. Right Buttock: Stage III pressure ulcer, present on admission. 2. Right Buttock, medial to site 1: Area of dark discoloration, possible sDTI, present on admission. 3. Left Buttock: Stage II pressure ulcer, present on admission. 4. Left Lateral Hip: Unstageable pressure ulcer, present on admission. 5. Left Lateral Ankle: Unstageable pressure ulcer, present on admission. 6. Left Proximal Posterior Calf: Unstageable pressure ulcer, present on admission. 7. Left Posterior Calf, inferior to site 6: Unstageable pressure ulcer, present on admission. 8. Left Dorsal Medial Foot: Unstageable pressure ulcer, present on admission. 9. Right Mid Lateral Thigh: Healed wound, present on admission. 10. Right Mid Posterior Calf: Multiple scattered open areas, present on admission; pt has 3+ pitting edema to BLE and BUE. Subjective Information: RD attended ICU rounds this morning. Primary RN reported that pt is being followed by oil program compliance specialist, and will likely transfer to telemetry unit today, now on 3 L O2 via NC. Per EMR review, pt is alert/confused; PO intake average of 50% x5 meal records; LBM x1 10/26; seen by ST for swallow eval 10/25, at which time, ST re for puree/NTL; 1:1 supervisions and full aspiration precautions; Hakan scale: 14, please refer to 10/15 Pharmacy Billing Adjudicator note for details. Pt may benefit from supplementation and encouragement at meal times. Current Diet Order/Nutrition Support: Cardiac, Pureed, NTL x1 day Patient/Significant Other Unable To Verbalize Education Provided Not Indicated Pertinent Medications: eliquis, lasix, os-isi, lactic acid, pepcid Pertinent Labs: BUN 22 H, Ca 7.8 L Height (Feet) 6 feet Height (Inches) 2.00 inches Weight (Pounds) 350 pounds -- NEW WT: (10/18) 329# 6oz/149.4 kg -- 30# wt loss possibly d/t fluid loss a/w Lasix therapy, gradual wt loss appropriate d/t morbid obesity. Patient Weight 158.757 kg Body Mass Index 44.93 kg/m2- NEW BMI 42.3 kg/m2 %IBW 184 [place]/Adjusted Body Weight 190#/86.4 kg Recent Weight Change unable to verify Weight Status Morbidly Obese Usual Diet At Home unable to verify NEW Estimated Energy Expenditure (kcals/day) 1782-4793 (30-35 kcal/kg IBW d/t morbid obesity, sepsis, wounds) NEW Estimated Protein Required (g/day) 86-130 (1-1.5 g/kg IBW d/t obesity, renal labs improving, sepsis, and wounds) Estimated Fluid Required (l/day) Per MD d/t DIANE Problem/Etiology/Signs/Symptoms Inadequate EN support R/T metabolic demands AEB estimated nutritional requirements for sepsis and wound healing. *TF not yet infusing Increased nutritional needs R/T physiological demands AEB estimated nutritional requirements for wound healing and sepsis. *Ongoing Expected Outcomes/Goals - Monitor tolerance of EN/oral intake w/ goal of pt meeting greater than 80% of estimated needs, labs trending WNL, normal GI function, skin integrity, wt maintenance. Dietitian Recommendations * Cardiac, Pureed, NTL diet w/ Ensure Enlive TID, Yeison BID (supplements yield an additional 1230 kcal/day, 65 gm protein/day) * Encourage increase PO intakes Follow Up Moderate Risk: F/U in 3-5 days
--- NOTE | 2021-10-27 17:08 | NUR ---
0800: PATIENT IS ASLEEP AROUSABLE WITH VERBAL STIMULI, ORIENTED X [address] RESPIRATION EVEN AND UNLABORED NO S/S OF ANY ACUTE DISTRESS NOTED. ABLE TO EXPRESS SIMPLE NEEDS NO CO ANY PAIN OR DISCOMFORT NOTED. ABDOMEN SOFT AND NON-DISTENDED, POSITIVE BOWEL SOUND X 4 NO N/V OR DIARRHEA NOTED. SKIN COOL AND DRY WITH MULTIPLE SKIN PROBLEM, TX INITIATED AND ONGOING. DRESSING REMAINED INTACT W/O ANY ACTIVE BLEEDING NOTED. WILL CONTINUE TO MONITOR PATIENT PRN 1400: PATIENT TOLERATED PO WELL WITH GOOD APPETITE NO CHANGE IN LOC. NO ADVERSE REACTION FROM CURRENT MEDICATION REGIMENT NOTED. PATIENT TRANSFERRED OFF THE UNIT TO TELEMETRY REPORT GIVEN TO ED NORWOOD
--- NOTE | 2021-10-27 17:10 | NUR ---
Dietitian Recommendations * Cardiac, Pureed, NTL diet w/ Ensure Enlive TID, Yeison BID (supplements yield an additional 1230 kcal/day, 65 gm protein/day) * Encourage increase PO intakes LP, RD Please refer to Nutrition F/U for details.
[2021-10-27] MEDS: AMMONIUM LACTATE 226 GM LOTION TP SCH (21:38)
[2021-10-28 01:47] VITALS: BP_SYST 127
[2021-10-28] MEDS: IPRATROPIUM/ALBUTEROL SULFATE 3 ML AMPUL.NEB (DUONEB) INH SCH ×6 (02:44→23:00)
--- NOTE | 2021-10-28 02:45 | NUR ---
PT REFUSED 299 SCHEDULED MED NEB TX, NO RESPIRATORY DISTRESS
[2021-10-28 04:00] VITALS: BP_SYST 156
[2021-10-28 07:08] LABS: BASOPHILS % (AUTO) 0.5 % (0.0-2.0); EOSINOPHILS # (AUTO) 0.2 K/uL (0.0-0.4); EOSINOPHILS % (AUTO) 2.8 % (0.0-4.0); HEMATOCRIT 32.3 % (36-54); HEMOGLOBIN 10.8 g/dL (14.0-18.0); LYMPHOCYTES # (AUTO) 1.3 K/uL (1.0-5.5); LYMPHOCYTES % (AUTO) 17.3 % (20.5-51.5); MEAN CORPUSCULAR HEMOGLOBIN 31 pg (27-31); MEAN CORPUSCULAR HGB CONC 34 % (32-36); MEAN CORPUSCULAR VOLUME 93 fL (79.0-98.0); MONOCYTES # (AUTO) 0.8 K/uL (0.0-1.0); MONOCYTES % (AUTO) 10.9 % (1.7-9.3); NEUTROPHILS # (AUTO) 5.3 K/uL (1.8-7.7); NEUTROPHILS % (AUTO) 68.5 % (40.0-70.0); PLATELET COUNT (AUTO) 347 K/uL (130-430); RED BLOOD CELL COUNT(AUTO) 3.49 MIL/uL (4.2-6.2); RED CELL DISTRIBUTION WIDTH 14.9 % (9.0-15.0); WHITE BLOOD COUNT (AUTO) 7.7 K/uL (4.8-10.8)
[2021-10-28 07:12] LABS: CALCIUM 7.8 mg/dL (8.4-11.0); CREATININE 1.05 mg/dL (0.55-1.30); POTASSIUM 3.6 mmol/L (3.5-5.1)
[2021-10-28 08:00] VITALS: BP_SYST 148
--- NOTE | 2021-10-28 08:00 | NUR ---
Morning notes: Pt A/Ox1, resting in bed. No s/s of respiratory or cardiac distress. PICC dressing is clean, dry and intact, with blood return. NS at 3L, Heals floating. Fall and safety precautions in place, call light with in reach, will continue to monitor.
[2021-10-28] MEDS: FAMOTIDINE PF 20 MG/2 ML VIAL IVP SCH (10:08)
[2021-10-28] MEDS: FUROSEMIDE 40 MG TABLET PO SCH (10:08)
[2021-10-28] MEDS: POTASSIUM CHLORIDE 20 MEQ TAB.PRT.SR PO SCH (10:09)
[2021-10-28] MEDS: METOPROLOL SUCCINATE 50 MG TAB.SR.24H (TOPROL XL) PO SCH (10:09)
[2021-10-28] MEDS: CALCIUM 500 MG/TAB PO SCH ×3 (10:09→21:34)
[2021-10-28] MEDS: APIXABAN 2.5 MG TABLET PO SCH ×2 (10:10→21:33)
[2021-10-28 11:35] VITALS: BP_SYST 151
[2021-10-28 16:24] VITALS: BP_SYST 143
[2021-10-28] MEDS: MENTHOL/ZINC OXIDE 113 GM OINT. TP PRN (16:56)
[2021-10-28] MEDS: BALSAM PERU/CASTOR OIL 56.7 GM OINT...G. TP SCH (16:58)
[2021-10-28] MEDS: EMOLLIENT COMBINATION NO.73 78 GM CREAM..G. TP SCH (16:59)
--- NOTE | 2021-10-28 18:45 | NUR ---
Closing notes: Pt A/Ox1, resting in bed. No s/s of respiratory or cardiac distress. PICC dressing is clean, dry and intact, with blood return. NS at 3L, Heals floating. Fall and safety precautions in place, call light with in reach, will endorse to operation shift supervisor.
[2021-10-28 20:00] VITALS: BP_SYST 135
[2021-10-28] MEDS: AMMONIUM LACTATE 226 GM LOTION TP SCH (21:34)
--- NOTE | 2021-10-28 23:08 | NUR ---
MED NEB TX REFUSED AT THIS TIME. PT STATES HE WANTS TO SLEEP. FOUND WITH NASAL CANNULA OFF, PLACED BACK ON PT. NO SIGNS OF RESPIRATORY DISTRESS
[2021-10-29] VITALS: BP_SYST 148
--- NOTE | 2021-10-29 03:22 | NUR ---
FOUND PT WITH NASAL CANNULA OFF, SPO2 91%. MED NEB TX GIVEN, NASAL CANNULA PLACED BACK ON PT POST MED NEB
[2021-10-29] MEDS: IPRATROPIUM/ALBUTEROL SULFATE 3 ML AMPUL.NEB (DUONEB) INH SCH ×6 (03:38→23:22)
[2021-10-29 08:00] VITALS: BP_SYST 120
--- NOTE | 2021-10-29 08:00 | NUR ---
Morning notes: Pt A/Ox1, resting in bed. No s/s of respiratory or cardiac distress, NS at 3L. PICC dressing is clean, dry and intact, with blood return. Heals floating with boots, pillow support for left arm. Fall and safety precautions in place, call light with in reach, will continue to monitor.
[2021-10-29] MEDS: POTASSIUM CHLORIDE 20 MEQ TAB.PRT.SR PO SCH (09:57)
[2021-10-29] MEDS: FAMOTIDINE PF 20 MG/2 ML VIAL IVP SCH (09:57)
[2021-10-29] MEDS: METOPROLOL SUCCINATE 50 MG TAB.SR.24H (TOPROL XL) PO SCH (09:58)
[2021-10-29] MEDS: CALCIUM 500 MG/TAB PO SCH ×3 (09:58→20:37)
[2021-10-29] MEDS: FUROSEMIDE 40 MG TABLET PO SCH (09:59)
[2021-10-29] MEDS: APIXABAN 2.5 MG TABLET PO SCH ×2 (10:00→20:37)
[2021-10-29] MEDS: MENTHOL/ZINC OXIDE 113 GM OINT. TP PRN (10:11)
[2021-10-29] MEDS: BALSAM PERU/CASTOR OIL 56.7 GM OINT...G. TP SCH (10:13)
[2021-10-29] MEDS: EMOLLIENT COMBINATION NO.73 78 GM CREAM..G. TP SCH (10:14)
--- NOTE | 2021-10-29 11:53 | NUR ---
Discharge Planning: DCP faxed to [facility]#[phone] patient accepted to Rm 101 pending DC order.
[2021-10-29 12:00] VITALS: BP_SYST 141
[2021-10-29 15:58] LABS: HEMOGLOBIN 11.4 g/dL (14.0-18.0)
[2021-10-29 16:03] LABS: BASOPHILS # (AUTO) 0.1 K/uL (0.0-0.2); BASOPHILS % (AUTO) 0.9 % (0.0-2.0); CALCIUM 7.7 mg/dL (8.4-11.0); EOSINOPHILS # (AUTO) 0.2 K/uL (0.0-0.4); EOSINOPHILS % (AUTO) 2.2 % (0.0-4.0); HEMATOCRIT 34.5 % (36-54); LYMPHOCYTES # (AUTO) 1.5 K/uL (1.0-5.5); LYMPHOCYTES % (AUTO) 15.6 % (20.5-51.5); MEAN CORPUSCULAR HEMOGLOBIN 31 pg (27-31); MEAN CORPUSCULAR HGB CONC 33 % (32-36); MEAN CORPUSCULAR VOLUME 93 fL (79.0-98.0); MONOCYTES # (AUTO) 0.9 K/uL (0.0-1.0); MONOCYTES % (AUTO) 9.4 % (1.7-9.3); NEUTROPHILS # (AUTO) 6.8 K/uL (1.8-7.7); NEUTROPHILS % (AUTO) 71.9 % (40.0-70.0); PLATELET COUNT (AUTO) 389 K/uL (130-430); POTASSIUM 3.7 mmol/L (3.5-5.1); RED BLOOD CELL COUNT(AUTO) 3.72 MIL/uL (4.2-6.2); WHITE BLOOD COUNT (AUTO) 9.4 K/uL (4.8-10.8)
[2021-10-29 16:50] VITALS: BP_SYST 124
[2021-10-29 18:10] VITALS: BP_SYST 124
--- NOTE | 2021-10-29 18:25 | NUR ---
Closing notes: Pt A/Ox1-2, resting in bed. No s/s of respiratory or cardiac distress, NS at 2L. PICC dressing is clean, dry and intact, with blood return. Heals floating with boots, pillow support for left arm. Fall and safety precautions in place, call light with in reach, will endorse to milk wagon driver.
[2021-10-29 20:00] VITALS: BP_SYST 113
[2021-10-29] MEDS: AMMONIUM LACTATE 226 GM LOTION TP SCH (20:37)
[2021-10-30] VITALS: BP_SYST 110
[2021-10-30] MEDS: IPRATROPIUM/ALBUTEROL SULFATE 3 ML AMPUL.NEB (DUONEB) INH SCH ×6 (03:00→23:23)
[2021-10-30 06:21] LABS: BASOPHILS # (AUTO) 0.1 K/uL (0.0-0.2); BASOPHILS % (AUTO) 0.7 % (0.0-2.0); EOSINOPHILS # (AUTO) 0.1 K/uL (0.0-0.4); EOSINOPHILS % (AUTO) 1.8 % (0.0-4.0); HEMATOCRIT 34.8 % (36-54); HEMOGLOBIN 11.7 g/dL (14.0-18.0); LYMPHOCYTES # (AUTO) 0.9 K/uL (1.0-5.5); LYMPHOCYTES % (AUTO) 10.9 % (20.5-51.5); MEAN CORPUSCULAR HEMOGLOBIN 31 pg (27-31); MEAN CORPUSCULAR HGB CONC 34 % (32-36); MEAN CORPUSCULAR VOLUME 92 fL (79.0-98.0); MONOCYTES # (AUTO) 0.7 K/uL (0.0-1.0); MONOCYTES % (AUTO) 7.7 % (1.7-9.3); NEUTROPHILS # (AUTO) 6.7 K/uL (1.8-7.7); NEUTROPHILS % (AUTO) 78.9 % (40.0-70.0); PLATELET COUNT (AUTO) 438 K/uL (130-430); RED BLOOD CELL COUNT(AUTO) 3.76 MIL/uL (4.2-6.2); RED CELL DISTRIBUTION WIDTH 15.7 % (9.0-15.0); WHITE BLOOD COUNT (AUTO) 8.5 K/uL (4.8-10.8)
[2021-10-30 06:55] LABS: ALBUMIN 1.9 g/dL (3.4-4.8); CALCIUM 7.9 mg/dL (8.4-11.0); CREATININE 1.19 mg/dL (0.55-1.30); POTASSIUM 3.8 mmol/L (3.5-5.1); TOTAL BILIRUBIN 0.7 mg/dL (0.0-1.0)
--- NOTE | 2021-10-30 08:00 | NUR ---
NOTES PATIENT AAO X 3 VITALS SIGNS STABLE. AFEBRILE. BP 127/103. LUNGS BILATERALLY DIMINISHED AT THE BASES. ABDOMEN SOFT AND NON DISTENDED. HAS PICC LINE 2 LUMEN AT THE LEFT UPPER ARM. CALL LIGHTS WITHIN REACH. BED LOW POSITION, ALARMED AND LOCKED. WILL CONTINUE TO MONITOR.
[2021-10-30 08:01] VITALS: BP_SYST 127
[2021-10-30] MEDS: FAMOTIDINE PF 20 MG/2 ML VIAL IVP SCH (08:37)
[2021-10-30] MEDS: FUROSEMIDE 40 MG TABLET PO SCH (08:39)
[2021-10-30] MEDS: APIXABAN 2.5 MG TABLET PO SCH ×2 (08:44→22:33)
[2021-10-30] MEDS: CALCIUM 500 MG/TAB PO SCH ×3 (08:45→22:30)
[2021-10-30] MEDS: POTASSIUM CHLORIDE 20 MEQ TAB.PRT.SR PO SCH (08:45)
[2021-10-30] MEDS: METOPROLOL SUCCINATE 50 MG TAB.SR.24H (TOPROL XL) PO SCH (08:45)
--- NOTE | 2021-10-30 08:53 | NUR ---
DUE MEDS GIVEN
[2021-10-30] MEDS: BALSAM PERU/CASTOR OIL 56.7 GM OINT...G. TP SCH (09:00)
[2021-10-30] MEDS: EMOLLIENT COMBINATION NO.73 78 GM CREAM..G. TP SCH (10:00)
[2021-10-30] MEDS ORDERED: APIX2.5T PO (11:09)
[2021-10-30] MEDS ORDERED: METO50TA7 PO (11:09)
[2021-10-30] MEDS ORDERED: FURO-149 PO (11:09)
[2021-10-30] MEDS ORDERED: OMEP20CA15 PO (11:09)
--- NOTE | 2021-10-30 11:25 | NUR ---
DR DEVI SANCHEZ COVERING FOR DR RJ CAN MADE ORDERS FOR DISCHARGE TO SNF. AND DARRION POWER PRESS TENDER MADE AWARE.
[2021-10-30 11:28] VITALS: BP_SYST 124
--- NOTE | 2021-10-30 15:19 | NUR ---
CASE MANGER CANINE SERVICE INSTRUCTOR TRAINER, ROWENA WAS CALLED, RE: F/U STATUS OF TRANSFER TO [facility] , INFO OM AMBULANCE CLIPPER OPERATOR. LEFT HER VOICE MESSAGE.
--- NOTE | 2021-10-30 16:08 | NUR ---
CM Late entry: Difficult to arrange ambulance BLS today, this due to no staff, no services available per the ambulance companies I called today. I contacted via email to Opal, Director and [facility] ambulance for the GERMAN fee , this due to pt did not have insurance benefits covered the basic ambulance transport and in addition, the pt required 2nd crew for bariatric as well. The GERMAN was approved by Opal for the sum of $ 589.48. Lulu gave ETA at 2130 pm. -- ED Almanzar made aware.
--- NOTE | 2021-10-30 16:36 | NUR ---
[facility] CALLED AND INFORMED THAT BUYERS' AGENT TIME GOING TO [facility] WILL BE AT 2130. SPOKE TO MARVIN.
--- NOTE | 2021-10-30 17:04 | NUR ---
AWAITING FOR [facility] MILL STENCILER TO BRING THE PACKET FOR DISCHARGE.
[2021-10-30 17:11] VITALS: BP_SYST 144
[2021-10-30 17:13] VITALS: BP_SYST 143
--- NOTE | 2021-10-30 17:20 | NUR ---
CALLED [facility] FOR REPORT AND SPOKE TO JAGRUTI WARD AND SAID CANNOT ACCEPT THE PATIENT NO BED AVAILABILITY FOR NOW, PERHAPS TOMORROW. AND [facility] AND INFORMED JUAN J CHARGE NURSE.
--- NOTE | 2021-10-30 17:30 | NUR ---
PER INSTRUCTION OF ED MALIK, [facility] WAS CALLED TO CHANGE THE ACTIVE STATUS BACK TO WILL CALL. PT IS NOT LEAVING TODAY BECAUSE THERE IS NO AVAILABLE RM AT [facility].
--- NOTE | 2021-10-30 19:30 | NUR ---
Opening note Received report from day shift. Pt is resting in bed, eyes closed. No s/s of respiratory distress. Breathing is even and unlabored. GAURI picc line intact and patent saline lock. Sheridan catheter intact and draining by gravity. Fall and safety precation in place with bed in lowest position, bed alarm on, and call light within reach
[2021-10-30 20:00] VITALS: BP_SYST 143
[2021-10-30] MEDS: AMMONIUM LACTATE 226 GM LOTION TP SCH (21:00)
[2021-10-31] VITALS: BP_SYST 137
--- NOTE | 2021-10-31 00:15 | NUR ---
Pt sleeping. No s/s of acute distress. Fall and safety precautions in place
[2021-10-31] MEDS: IPRATROPIUM/ALBUTEROL SULFATE 3 ML AMPUL.NEB (DUONEB) INH SCH ×4 (03:26→16:30)
--- NOTE | 2021-10-31 06:57 | NUR ---
Closing note Pt awake resting in bed. No s/s of respiratory distress. Breathing even and unlabored. PICC line intact and patent saline lock. Sheridan catheter intact and draining by gravity. Fall and safety precautions in place with bed in lowest position, bed alarm on, and call light within reach. All needs met throughout shift.
[2021-10-31 07:01] LABS: BASOPHILS # (AUTO) 0.1 K/uL (0.0-0.2); BASOPHILS % (AUTO) 0.6 % (0.0-2.0); EOSINOPHILS # (AUTO) 0.2 K/uL (0.0-0.4); EOSINOPHILS % (AUTO) 2.2 % (0.0-4.0); HEMATOCRIT 33.8 % (36-54); HEMOGLOBIN 11.4 g/dL (14.0-18.0); LYMPHOCYTES # (AUTO) 1.4 K/uL (1.0-5.5); LYMPHOCYTES % (AUTO) 17.1 % (20.5-51.5); MEAN CORPUSCULAR HEMOGLOBIN 31 pg (27-31); MEAN CORPUSCULAR HGB CONC 34 % (32-36); MEAN CORPUSCULAR VOLUME 92 fL (79.0-98.0); MONOCYTES # (AUTO) 0.9 K/uL (0.0-1.0); MONOCYTES % (AUTO) 11.3 % (1.7-9.3); NEUTROPHILS # (AUTO) 5.6 K/uL (1.8-7.7); NEUTROPHILS % (AUTO) 68.8 % (40.0-70.0); PLATELET COUNT (AUTO) 422 K/uL (130-430); RED BLOOD CELL COUNT(AUTO) 3.69 MIL/uL (4.2-6.2); RED CELL DISTRIBUTION WIDTH 15.9 % (9.0-15.0); WHITE BLOOD COUNT (AUTO) 8.2 K/uL (4.8-10.8)
[2021-10-31 07:51] LABS: CALCIUM 7.5 mg/dL (8.4-11.0); CREATININE 1.03 mg/dL (0.55-1.30); POTASSIUM 3.5 mmol/L (3.5-5.1)
[2021-10-31 08:00] VITALS: BP_SYST 109
--- NOTE | 2021-10-31 08:00 | NUR ---
NOTES PATIENT AAOX 3. AT TIMES CONFUSED/FLAT AFFECT. VITALS SIGNS STABLE. AFEBRILE. LUNGS BILATERALLY DIMINISHED AT THE BASES. ABDOMEN SOFT AND NON DISTENDED. HAS MULTIPLE SCABS NOTED ON BOTH FEET/SOLES. BACK SCABS. SKIN TEAR ON THE RIGHT UPPER ARM. HAS WOUND ON THE SACRAL AND BUTTOCKS AREA UNSTEAGEABLE. HAS PICC LINE ON THE LEFT UPPER ARM. PATENT/DRY. HAS [place] CATHETER DRAINING MANDA CLEAR URINE. WILL CONTINUE TO MONITOR
--- NOTE | 2021-10-31 08:30 | NUR ---
CM: per Jenelle: the pt did not transfer to [facility] last night because nurse at [facility] stated no bed for the pt. I confirmed with Mackenzie, admitting stated there was bed last night. She confrimed can take pt wolf. [facility] recalled by Callie for brain picker time at 1400. -- ED Almanzar aware.
[2021-10-31] MEDS: FAMOTIDINE PF 20 MG/2 ML VIAL IVP SCH (08:39)
[2021-10-31] MEDS: METOPROLOL SUCCINATE 50 MG TAB.SR.24H (TOPROL XL) PO SCH (08:44)
[2021-10-31] MEDS: POTASSIUM CHLORIDE 20 MEQ TAB.PRT.SR PO SCH (08:45)
[2021-10-31] MEDS: FUROSEMIDE 40 MG TABLET PO SCH (08:45)
[2021-10-31] MEDS: CALCIUM 500 MG/TAB PO SCH (08:46)
[2021-10-31] MEDS: APIXABAN 2.5 MG TABLET PO SCH (08:47)
[2021-10-31] MEDS: EMOLLIENT COMBINATION NO.73 78 GM CREAM..G. TP SCH (08:49)
[2021-10-31] MEDS: BALSAM PERU/CASTOR OIL 56.7 GM OINT...G. TP SCH (08:49)
--- NOTE | 2021-10-31 09:00 | NUR ---
MEDS DUE GIVEN. STILL ON ELIQUIS PO.
--- NOTE | 2021-10-31 09:38 | NUR ---
Activated the will call status. [facility] WILL TRANSPORT PT TO [facility] AT 1400. Spoke to MARVIN.
[2021-10-31 10:06] VITALS: BP_SYST 109
--- NOTE | 2021-10-31 10:30 | NUR ---
SBAR REPORT GIVEN TO CHRISTOPHER ALBRIGHT AT [facility] GOING TO ROOM 101-A. 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
[2021-10-31 12:43] VITALS: BP_SYST 127
--- NOTE | 2021-10-31 14:00 | NUR ---
DRESSING CHANGED ON THE SACRAL, BUTTOCKS AREA. HAD MODERATE SOFT BROWN BM
[2021-10-31 16:00] VITALS: BP_SYST 145
--- NOTE | 2021-10-31 16:30 | NUR ---
PATIENT LEFT IN STABLE CONDITION VIA [facility]. GOING TO [facility] ROOM 101-A.
== END 2021-10-31 16:30 | DRG 853 ==
LOC: SED 20:44 → SIC 22:11 → STU 10-27 15:14
PROVIDERS: ADMIT Family Medicine; ATTEND Family Medicine
PROC: 5A2204Z Restoration of Cardiac Rhythm, Single (ICD-10-PCS; 2021-10-07)
PROC: 5A09357 Assistance with Respiratory Ventilation, Less than 24 Consecutive Hours, Continuous Positive Airway Pressure (ICD-10-PCS; 2021-10-08)
PROC: 5A1955Z Respiratory Ventilation, Greater than 96 Consecutive Hours (ICD-10-PCS; principal; 2021-10-09)
PROC: 5A09357 Assistance with Respiratory Ventilation, Less than 24 Consecutive Hours, Continuous Positive Airway Pressure (ICD-10-PCS; 2021-10-09)
PROC: 0BH17EZ Insertion of Endotracheal Airway into Trachea, Via Natural or Artificial Opening (ICD-10-PCS; 2021-10-09)
PROC: 02HV33Z Insertion of Infusion Device into Superior Vena Cava, Percutaneous Approach (ICD-10-PCS; 2021-10-09)
PROC: B548ZZA Ultrasonography of Superior Vena Cava, Guidance (ICD-10-PCS; 2021-10-09)
PROC: 0JBP0ZZ Excision of Left Lower Leg Subcutaneous Tissue and Fascia, Open Approach (ICD-10-PCS; 2021-10-11)
PROC: 02HV33Z Insertion of Infusion Device into Superior Vena Cava, Percutaneous Approach (ICD-10-PCS; 2021-10-17)
PROC: B548ZZA Ultrasonography of Superior Vena Cava, Guidance (ICD-10-PCS; 2021-10-17)
PROC: 5A09457 Assistance with Respiratory Ventilation, 24-96 Consecutive Hours, Continuous Positive Airway Pressure (ICD-10-PCS; 2021-10-18)
PROC: 0BH17EZ Insertion of Endotracheal Airway into Trachea, Via Natural or Artificial Opening (ICD-10-PCS; 2021-10-19)
PROC: 5A1955Z Respiratory Ventilation, Greater than 96 Consecutive Hours (ICD-10-PCS; 2021-10-19)
DX: A41.9 Sepsis, unspecified organism (principal); E43 Unspecified severe protein-calorie malnutrition; G93.41 Metabolic encephalopathy; R65.21 Severe sepsis with septic shock; N17.0 Acute kidney failure with tubular necrosis; J96.01 Acute respiratory failure with hypoxia; J69.0 Pneumonitis due to inhalation of food and vomit; K85.90 Acute pancreatitis without necrosis or infection, unspecified; I50.43 Acute on chronic combined systolic (congestive) and diastolic (congestive) heart failure; I24.8 Other forms of acute ischemic heart disease; I47.1 Supraventricular tachycardia; E66.2 Morbid (severe) obesity with alveolar hypoventilation; Z68.41 Body mass index [BMI] 40.0-44.9, adult; I82.C11 Acute embolism and thrombosis of right internal jugular vein; I82.B11 Acute embolism and thrombosis of right subclavian vein; I82.611 Acute embolism and thrombosis of superficial veins of right upper extremity; I96 Gangrene, not elsewhere classified; L03.116 Cellulitis of left lower limb; L03.115 Cellulitis of right lower limb; I13.0 Hypertensive heart and chronic kidney disease with heart failure and stage 1 through stage 4 chronic kidney disease, or unspecified chronic kidney disease; E87.2 Acidosis; N39.0 Urinary tract infection, site not specified; R17 Unspecified jaundice; T74.01XA Adult neglect or abandonment, confirmed, initial encounter; L97.309 Non-pressure chronic ulcer of unspecified ankle with unspecified severity; F32.9 Major depressive disorder, single episode, unspecified; F20.9 Schizophrenia, unspecified; F99 Mental disorder, not otherwise specified; D69.6 Thrombocytopenia, unspecified; E83.39 Other disorders of phosphorus metabolism; E87.5 Hyperkalemia; R74.01 Elevation of levels of liver transaminase levels; E83.51 Hypocalcemia; Z20.822 Contact with and (suspected) exposure to COVID-19; I25.5 Ischemic cardiomyopathy; N18.9 Chronic kidney disease, unspecified; L89.309 Pressure ulcer of unspecified buttock, unspecified stage
CPT/HCPCS: 36415; 36600; 70450-TC; 71045; 76376; 76700-TC; 80048; 80053; 80061; 80074; 80076; 80307; 81000; 82103; 82150; 82390; 82550; 82553; 82728; 82803-TC; 83516; 83540; 83550; 83605; 83615; 83690; 83735; 83880; 84100; 84443; 84484; 85007; 85025; 85027; 85610-TC; 85730-TC; 86038; 86256; 86480; 86738; 87040; 87070-TC; 87081; 87086; 87186-TC; 87205-TC; 87449; 92610-GN; 92960; 93005; 93306; 93971; 94002; 94003; 94640; 94660; 94760; 96374; 96375; 97110-GP; 99291; C9113; G0378; J0456; J0610; J0878; J1170; J1650; J1720; J1940; J2060; J2270; J2405; J2543; J2704; J2997; J3370; J3480; J3490; J7050; J7060; P9046